=== PATIENT | male | born 1960 | race Caucasian/White ===

== ENCOUNTER → 2016-11-08 | Outpatient (CLI) | payer OTHER | END | disposition home or self-care (01) | LOC: C.LAB 14:08 | PROVIDERS: ATTEND Orthopaedic Surgery | DX: M25.532 Pain in left wrist (principal) ==

== ENCOUNTER 2019-05-27 10:37 | Inpatient (IN) ==
[2019-05-27] MEDS ORDERED: IMIPENEM/CILASTATIN SODIUM 500 MG in DEXTROSE 5% 100 ML IV STA (11:24)
[2019-05-27] MEDS ORDERED: DAPTOmycin 500 MG in SYRINGE 0 ML IV STA (11:24)
[2019-05-27 11:28] LABS: Basophils # (auto) 0.01 K/uL (0-0.2); Basophils % (auto) 0.2 %; Eosinophils # (auto) 0.13 K/uL (0-0.5); Eosinophils % (auto) 2.9 %; Hematocrit (blood only) 33.4 % (42-52); Hemoglobin 11.2 g/dL (14.0-18.0); Immature Granulocytes # (auto) 0.01 K/uL (0.00-0.02); Immature Granulocytes % (auto) 0.2 %; Lymphocytes # (auto) 0.74 K/uL (1.2-3.4); Lymphocytes % (auto) 16.5 %; Mean Corpuscular Hemoglobin 30.9 pg (25-34); Mean Corpuscular Hgb Conc 33.5 g/dL (32-36); Mean Platelet Volume 9.1 fL (7.4-10.4); Monocytes # (auto) 0.66 K/uL (0.11-0.59); Monocytes % (auto) 14.7 %; Neutrophils # (auto) 2.94 K/uL (1.4-6.5); Neutrophils % (auto) 65.5 %; Platelet Count 146 K/uL (130-400); RDW Coefficient of Variation 14.6 % (11.5-14.5); RDW Standard Deviation 49.2 fL (36.4-46.3); Red Blood Count 3.63 M/uL (4.7-6.1); White Blood Count 4.49 K/uL (4.8-10.8)
[2019-05-27 11:34] LABS: Appearance Urine Clear (Clear); Bacteria Urine Automated 4+ (Negative); Bilirubin Urine Negative (Negative); Blood Urine 3+ (Negative); Color Urine Yellow; Epithelial Cell Urine Auto 0-5 /lpf (0-5); Glucose Urine UA Negative (Negative); Ketones Urine Negative (Negative); Leukocyte Esterase Urine 1+ (Negative); Nitrite Urine Positive (Negative); Protein Urine Negative (Negative); Specific Gravity Urine 1.014 (1.000-1.030); Urobilinogen Urine Negative (Negative); WBC Urine Automated >30 /hpf (0-5)
[2019-05-27 11:48] LABS: Alanine Aminotransferase 74 U/L (12-78); Albumin Level 3.1 gm/dl (3.4-5.0); Aspartate Aminotransferase 65 U/L (15-37); BUN Creatinine Ratio 23.9 (10-20); Blood Urea Nitrogen 25 mg/dl (7-18); Calcium 9.1 mg/dl (8.5-10.1); Carbon Dioxide 28 mmol/L (21-32); Chloride 106 mmol/L (98-107); Est GFR (African American) 90.7; Est GFR (Non-African American) 78.2; Glucose 118 mg/dl (70-99); Lipase 187 U/L (73-393); Potassium 3.8 mmol/L (3.5-5.1); Sodium 136 mmol/L (136-145)
[2019-05-27 11:51] LABS: Albumin Globulin Ratio 0.7 (0.9-2); Alkaline Phosphatase 83 U/L (45-117); Bilirubin,Total 0.4 mg/dl (0.2-1); Globulin 4.2 gm/dl (2.5-4.0); Total Protein 7.3 gm/dl (6.4-8.2)
--- NOTE | 2019-05-27 13:21 | CT Scan Report ---
ABDOMEN AND PELVIS CT WITHOUT CONTRAST CT DOSE: 1781.94 mGy.cm HISTORY: Generalized abd pain, fever, urinary stent TECHNIQUE: Multiaxial CT images of the abdomen and pelvis were performed without contrast. A dose lo wering technique was utilized adhering to the principles of ALARA. COMPARISON STUDY: [facility] 04/01/2019. FINDINGS: A 4 mm nodule within the base of the right lower lobe on image 84. Punctate calcified granu woo within the lung bases. Trace bilateral pleural effusions. No pneumoperitoneum. No pneumatosis. Posterior decompression fusion from L2 through S1 with screws and rods. The hardware appears intact. There is abnormal periprosthetic lucency at the L2 and S1 pedicle screws. No fractures within the vis ualized osseous structures. A few punctate gallstones. No gallbladder wall thickening. The unenhanced liver, spleen, and adrenal glands are within normal limits. Small hiatus hernia. Prior gastric bypas s. The unenhanced pancreas is unremarkable. No retroperitoneal lymphadenopathy. Redemonstration of a horseshoe kidney. There is a punctate stone on the left. Multiple stones within the right lower pole widely. Mild perinephric edema. There is a right ureteral stent which appears in good position. No ur eteral or bladder stones. No bladder wall thickening. A 2.6 cm exophytic hypodense lesion within the right kidney. This likely represents a cyst. Suboptimal evaluation for bowel pathology due to the lac k of intravenous and oral contrast. However, there is no definite bowel wall thickening or obstructio n. Colonic diverticulosis. No evidence for diverticulitis. Normal appendix. IMPRESSION: 1. Bilateral nephrolithiasis. No ureteral stones. No hydronephrosis. 2. A right ureteral stent is in good position. 3. Horseshoe kidney. Mild perinephric edema is indeterminate but could be chronic. A pyelonephritis c ould also have a similar appearance in the appropriate clinical setting. Recommend correlation with u rinalysis. 5. No definite bowel wall thickening or obstruction. 6. Cholelithiasis. 7. A 4 mm indeterminate pulmonary nodule within the base of the right lower lobe. Please refer to the chart below for recommended follow-up. 8. Additional findings as described above. Please refer to below summary of Fleischner criteria recommendations for follow-up of incidental CT n odesequiel Cabrera, Guidelines for management of small pulmonary nodules detected on CT scans: A erendira acevedo from the Fleischner Society, Radiology [phone]: [phone].) SOLID NODULES Solitary nodule size: <6 mm * Low risk patients: no follow-up needed * high risk patients: optional CT at 12 months Solitary nodule size: 6-8 mm * Low risk patients: follow-up at 6-12 months, then consider further follow-up at 18-24 months * high risk patients: initial follow-up CT at 6-12 months and then at 18-24 months if no change Solitary nodule size: >8 mm * either low or high risk patients - consider follow-up CT at 3 months, and/or CT-PET, and/or biopsy Multiple nodules size: <6 mm * Low risk patients: no routine follow-up * high risk patients: optional CT at 12 months Multiple nodules size: 6-8 mm * Low risk patients: follow-up at 3-6 months, then consider further follow-up at 18-24 months * high risk patients: follow-up at 3-6 months, then at 18-24 months if no change Multiple nodules size: >8 mm * Low risk patients: follow-up at 3-6 months, then consider further follow-up at 18-24 months * high risk patients: follow-up at 3-6 months, then at 18-24 months if no change Note: newly detected indeterminate nodule in persons 35 years of age or older. * Low risk patients: minimal or absent history of smoking and/or other known risk factors * high risk patients: history of smoking or of other known risk factors (e.g. first degree relative with lung cancer, or exposure to asbestos, radon, uranium) * if a nodule up to 8 mm is partly solid or is ground glass further follow-up is required after 24 m onths to exclude possible slow growing adenocarcinoma (NATALIA) SUBSOLID NODULES Solitary pure ground-glass nodule * nodule size <6 mm - no CT follow-up required * nodule size >=6 mm - follow-up CT at 6-12 months, then every 2 years until 5 years Solitary part-solid nodule * nodule size <6 mm - no CT follow-up required * nodule size >=6 mm - follow-up CT at 3-6 months. If unchanged, and solid component remains <6 mm, then annual follow-up for 5 years Multiple subsolid nodules * nodule size <6 mm - follow-up CT at 3-6 months, consider further follow-up at 2 and 4 years if sta ble * nodule size >=6 mm - follow-up CT at 3-6 months, subsequent management based on the most suspiciou s nodule(s) Electronically signed by: Bandar Mccray M.D. 05/27/2019 1:20 PM
--- NOTE | 2019-05-27 14:25 | History & Physical Report ---
Date of Service May 27, 2019 Assessment & Plan (1) Pyelonephritis: (2) UTI (urinary tract infection): (3) Horseshoe kidney: -Admit to [facility] -Continue on IV antibiotics-received imipenem and daptomycin in the ER, will switch to imipenem and vancomycin IV. -S/P lithotripsy and stent placement by Dr. Harsh Chou on 05/14/2019, Urology consult. Pt was taking Omnicef p.o. s/p procedure and is now on hold as failed outp abx therapy with fever, chills and sweats throughout the weekend. -Consult Dr. Man with ID as follows him as outpt. -CT abd/pelvis reviewed: 1. Bilateral nephrolithiasis. No ureteral stones. No hydronephrosis. 2. A right ureteral stent is in good position. 3. Horseshoe kidney. Mild perinephric edema is indeterminate but could be chronic. A pyelonephritis could also have a similar appearance in the appropriate clinical setting. Recommend correlation with urinalysis. -UA today with nitrate and esterase, WBC >30, 4+ bacteria -Follow urine culture, previously cultures with coag negative staph and multidrug-resistant E. coli. -Strain all urine, bladder scan prn -No fluids with diuretics for HTN, consider holding lasix below. -Continue on terra Zosyn, Mirapex, holding Pyridium -BP stable at 121/77, afebrile upon admission, but had been taking Tylenol at home, does not appear septic at this time. (4) Hypertension: -Continue Lasix alternating doses of 40 mg QPM and 80 mg QAM (5) Hyperlipidemia: - Cont statin therapy (6) Atrial fibrillation: - Cont Eliquis, currently NSR with few PVCs, rate controlled - Continue carvedilol 6.25 mg BID (7) Diabetes mellitus, type 2: - ISS with accuchecks ACHS - HH/DM diet (8) Rheumatoid arthritis: - stable, continue voltaren gel prn (9) Sleep apnea: - Cont CPAP (10) Asthma: - Cont inhalers including albuterol, Advair. No respiratory complaints at this time. (11) Osteoarthritis: - Noted, stable (12) GERD (gastroesophageal reflux disease): - Cont PT/OT (13) Chronic back pain: - Stable, continue tylenol, voltaren gel (14) Morbid obesity: - diet and exercise to be encouraged upon discharge. (15) Anxiety: - Continue paxil 20 mg BID (16) DVT prophylaxis: sarah amezcua CODE: FULL Dispo: From home, likely to remain in the hospital for 1-2 days pending urology consultation History of Present Illness Primary Care Provider: Javier Shah This is a 58 yo M with PMHx of AFib, HTN, HLD, hx of ME, lumbar vertebral fracture, lung nodules attributed to calcified asbestos, asthma, DM II, GERD, RA, JONATHON on CPAP, chronic back and neck pain anxiety, horseshoe kidney and nephrolithiasis with hx of complicated UTI in the setting of nephrolithiasis ith E. Coli. Had been placed on omnicef as an outpatient since the basket stone removal on 05/14/19. The patient notes that he developed fever, chills, sweats starting on Monday. He notes having spiked a fever of 104 over the weekend and took Tylenol however had rebound spiking fevers. His appetite was fairly poor, but was able to take in fluids. He notes his urine is dark and cloudy, with occasional hematuria. He reports having lightheadedness and dizziness but thinks this is due to his poor oral intake. He denies any issues regarding his heart or shortness of breath. His who is at bedside reports that he has not been confused despite his fevers over the weekend. His symptoms progressed and called his urologist this morning who instructed him to go to the ER. Allergies Allergy/AdvReac Type Severity Reaction Status Date / Time bee venom protein (honey bee) Allergy Severe Anaphylaxis Verified 05/27/19 11:46 amitriptyline Allergy Intermediate Tachycardia Verified 05/27/19 11:46 budesonide [From Symbicort] Allergy Intermediate Tachycardia Verified 05/27/19 11:46 formoterol [From Symbicort] Allergy Intermediate Tachycardia Verified 05/27/19 11:46 gabapentin [From Neurontin] Allergy Intermediate tachycardia Verified 05/27/19 11:46 c pregabalin [From Lyrica] Allergy Intermediate Tachycardia Verified 05/27/19 11:46 fentanyl Allergy Unknown patch only Verified 05/27/19 11:46 - tachycardia sumac Allergy Severe Anaphylaxis Uncoded 05/27/19 11:46 Home Medications Home Medications Medication Instructions Recorded Confirmed Type Multivitamin 50 Plus 1 tab PO QDL 10/30/19 12/02/19 History albuterol sulfate 1.25 mg INHALATION BID PRN 04/24/19 05/27/19 History albuterol sulfate 2 inh INHALATION BID PRN 04/24/19 05/27/19 History carvedilol 6.25 mg PO BID 04/24/19 05/27/19 History cyanocobalamin (vitamin B-12) 1,000 mcg PO QDD 04/24/19 05/27/19 History [Vitamin B-12] diclofenac sodium [Voltaren] 2 g TOPICAL QID PRN 04/24/19 05/27/19 History epinephrine [EpiPen] 0.3 mg IM Q3H PRN 04/24/19 05/27/19 History ferrous sulfate 325 mg PO QDL 04/24/19 05/27/19 History finasteride 5 mg PO HS 04/24/19 05/27/19 History fluticasone propion-salmeterol 1 inh INHALATION BID PRN 04/24/19 05/27/19 History [Advair Diskus] furosemide [Lasix] 80 mg PO QAM 04/24/19 05/27/19 History insulin lispro [Humalog KwikPen 10 unit SUBCUT UD PRN 04/24/19 05/27/19 History Insulin] omeprazole 20 mg PO QAM 04/24/19 05/27/19 History paroxetine HCl [Paxil] 20 mg PO BID 04/24/19 05/27/19 History potassium chloride [Klor-Con M20] 20 meq PO BID 04/24/19 05/27/19 History pramipexole [Mirapex] 1.5 mg PO TID 04/24/19 05/27/19 History terazosin 5 mg PO HS 04/24/19 05/27/19 History tizanidine 4 mg PO HS PRN 04/24/19 05/27/19 History trazodone 200 mg PO HS 04/24/19 05/27/19 History cefdinir 300 mg capsule 300 mg PO Q12H #60 cap 05/03/19 05/27/19 Rx Eliquis 5 mg PO BID #0 tab 05/14/19 05/27/19 Rx aspirin [Aspirin Low Dose] 81 mg PO QAM #0 tab 05/14/19 05/27/19 Rx phenazopyridine [Pyridium] 200 mg PO Q8H PRN #20 tab 05/14/19 05/27/19 Rx acetaminophen [Tylenol Extra 500 mg PO Q6H PRN 05/27/19 05/27/19 History Strength] allopurinol 300 mg PO QDL 05/27/19 05/27/19 History atorvastatin 20 mg PO HS 05/27/19 05/27/19 History furosemide 40 mg PO QDD 05/27/19 05/27/19 History metolazone 5 mg PO MOWEFR 05/27/19 05/27/19 History Past Med/Surg History Medical History Anxiety Asthma Atrial fibrillation hx Barretts esophagus Benign essential tremor Cervical vertebral fracture limited range of motion Chronic back pain Degenerative disc disease Diabetes mellitus, type 2 diet controlled -- has humalog only prn (has not used since 2016) Diverticular disease Gall bladder stones GERD (gastroesophageal reflux disease) hx H/O retained foreign body fully removed bilateral eyes (removal of metal) H/O tongue cancer "pre cancerous lesions" Horseshoe kidney Hx of pneumothorax ~1981 r/t trauma Hyperlipidemia Hypertension Kidney stones Lumbar vertebral fracture Lung nodules believed to be calcified asbestos Myocardial Infarction possibly found on old EKG and also during ~2004 knee arthroscopy ([facility]) Neck pain On anticoagulant therapy Osteoarthritis Peptic ulcer disease hx Peripheral neuropathy bilateral legs Pneumonia hx Pyelonephritis Rheumatoid arthritis Sleep apnea CPAP UTI (urinary tract infection) CURRENTLY ON ABX (PO) WILL BE SEEING DR MAN FOR IV ABX Surgical History Fusion of spine Lumbar History of adenoidectomy History of arthroscopy of both knees History of bronchoscopy History of cardiac cath x2 total --> Aug 10, 2017 (most recent) [facility]. No stents. History of cardiac radiofrequency ablation x3 History of colonoscopy History of endoscopic sinus surgery History of esophagogastroduodenoscopy (EGD) History of gastric bypass History of laminectomy Lumbar History of tonsillectomy History of total knee replacement bilateral Hx of biopsy tongue x3 Family History Father Family history of diabetes mellitus FHx: leukemia Mother Family history of diabetes mellitus Social History Preferred Language: Japanese Communication Ability: Effective Calibrator Barometers Required: No Beliefs That Will Affect Care: None Current Living Situation: Spouse Feels Safe at Home: Yes Smoking Status: Never smoker Tobacco Type: smokeless tobacco ; Second Hand Exposure: No ; Hx Alcohol Use: No Hx Substance Use: No Review of Systems Review of Systems: Constitutional: + Fever, sweats and chills Eyes: No diplopia, no worsening or blurred vision ENT: normal hearing, no trouble swallowing Respiratory: No cough, sputum, dyspnea at rest or on exertion Cardiovascular: No chest pain, tightness or palpitations Abdomen: No pain, nausea, vomiting, diarrhea or constipation : + Darkened urine, cloudy urine, light pink and occasional hematuria Musculoskeletal: No joint pain, calf pain, swelling Neurologic: No weakness, numbness/tingling, or balance problems Psychiatric: No anxiety or depression Skin: No rash or itch Physical Exam Physical Exam: General: awake, alert, no apparent distress, + morbidly obese Head: Normocephalic, atraumatic ENT: PERRL, EOMI, no pharyngeal exudate, mucous membranes moist Chest: Clear to auscultation, on room air, no adventitious breath sounds Cardiac: Regular rate and rhythm, no murmur, no JVD, normal peripheral pulses, good capillary refill Abdominal: NABS x 4 quadrants, soft, nontender to palpation, no rebound, guarding or tenderness Extremities: Normal inspection, no peripheral edema or erythema, calfs nontender to palpation Psych: Normal mood and affect Neuro: AAO x 3, strength intact bilaterally and related 5/5, no motor deficits, speech is clear, no peripheral sensory deficits Skin: no rash or erythema Results & Data Vital Signs (Past 12 Hours) Vital Signs Temp Pulse Pulse Resp BP BP Pulse Ox 05/27/19 12:11 60 18 114/65 97 05/27/19 10:44 37.0 C 68 20 121/80 96 Diagnostic Findings ABDOMEN AND PELVIS CT WITHOUT CONTRAST CT DOSE: 1781.94 mGy.cm HISTORY: Generalized abd pain, fever, urinary stent TECHNIQUE: Multiaxial CT images of the abdomen and pelvis were performed without contrast. A dose lowering technique was utilized adhering to the principles of ALARA. COMPARISON STUDY: [facility] 04/01/2019. FINDINGS: A 4 mm nodule within the base of the right lower lobe on image 84. Punctate calcified granulomas within the lung bases. Trace bilateral pleural effusions. No pneumoperitoneum. No pneumatosis. Posterior decompression fusion from L2 through S1 with screws and rods. The hardware appears intact. There is abnormal periprosthetic lucency at the L2 and S1 pedicle screws. No fractures within the visualized osseous structures. A few punctate gallstones. No gallbladder wall thickening. The unenhanced liver, spleen, and adrenal glands are within normal limits. Small hiatus hernia. Prior gastric bypass. The unenhanced pancreas is unremarkable. No retroperitoneal lymphadenopathy. Redemonstration of a horseshoe kidney. There is a punctate stone on the left. Multiple stones within the right lower pole widely. Mild perinephric edema. There is a right ureteral stent which appears in good position. No ureteral or bladder stones. No bladder wall thickening. A 2.6 cm exophytic hypodense lesion within the right kidney. This likely represents a cyst. Suboptimal evaluation for bowel pathology due to the lack of intravenous and oral contrast. However, there is no definite bowel wall thickening or obstruction. Colonic diverticulosis. No evidence for diverticulitis. Normal appendix. IMPRESSION: 1. Bilateral nephrolithiasis. No ureteral stones. No hydronephrosis. 2. A right ureteral stent is in good position. 3. Horseshoe kidney. Mild perinephric edema is indeterminate but could be chronic. A pyelonephritis could also have a similar appearance in the appropriate clinical setting. Recommend correlation with urinalysis. 5. No definite bowel wall thickening or obstruction. 6. Cholelithiasis. 7. A 4 mm indeterminate pulmonary nodule within the base of the right lower lob e. Please refer to the chart below for recommended follow-up. 8. Additional findings as described above. Code Status & VTE Plan Code Status Full code -discussed with patient and his at bedside. Patient notes that in the event that he would require life support or other forms of heroic measures he would not want this. Supervising Physician Co-Signing Physician Notes Patient seen and examined, chart reviewed, case discussed with JORDY Alford and I agree with her assessment and plan as documented above. Briefly, patient is a pleasant 58-year-old male with history of hypertension, hyperlipidemia, diabetes, RA, obesity, horseshoe kidney, recent urologic instrumentation with lithotripsy and stent placement on 05/[address] Chou. Patient with urine culture + drug-resistant E. coli from 04/26 and intraoperative culture from 05/14 with coagulase-negative staph. Patient has been on Omnicef since 05/14 under the direction of Dr. Man. He presents today with fever/chills/sweats since Monday. On exam he is afebrile, hemodynamically stable, nontoxic in appearance. + Right CVA tenderness. Labs with mild leukopenia WBC = 4.49. UA + blood, nitrites, WBCs, bacteria. Examafebrile, hemodynamically stable, no acute distress + Right CVA tenderness Exam otherwise unremarkable Labs and images reviewed. CT abdomen performed which showed bilateral nephrolithiasis, no ureteral stones, no hydronephrosis, right ureteral stent is in good position. Assessment/[id number] male with multiple medical comorbidities presenting with fevers/chills/sweats/right flank pain, UA suggestive of infection. -Admit to medical floor for antibiotics and supportive care -We will cover with Vanco and imipenem for now -ID consultation appreciated -Nocturnal CPAP -Remainder of plan as above PG Care Time/CCT Total # of Minutes Spent Total Time Spent with Patient: Total time spent is greater than 50% in coordination of care (as documented) at patient's floor/unit and/or counseling patient:
--- NOTE | 2019-05-27 15:20 | Emergency Department Note ---
Entered by Rodrigo Gentile acting as a scribe for ED Provider Note CHIEF COMPLAINT: Pelvic pain HISTORY OF PRESENT ILLNESS: The patient is a 58 year old male who presents to the Emergency Room with complaints of constant bilateral lower abdominal pain that started about 3 days ago. The patient rates the pain as a 3/10 and notes nothing seems to help relieve it. The patient endorses some associated nausea but has not vomited. The patient also has been running intermittent fevers since the onset of his pain with his highest fever reaching 104F. The patient adds that he is experiencing pain with urination and his urine has been a very dark brown color. The patient has a horse shoe kidney and a history of UTIs, kidney stones and gallstones. The patient is currently on Omnicef for a UTI. He also mentioned that he had a 15mm kidney stone lasered 2 weeks ago and had a stent placed by Dr. Chou. The stent is scheduled to be removed on 06/07. Additionally the patient endorses right upper quadrant abdominal pain. Pt denies LOC, headache, diaphoresis, visual changes, neck pain, chest pain, breathing difficulties,vomiting, back pain, melena, hematochezia, numbness, weakness, lymphadenopathy, rash, or other complaints. REVIEW OF SYSTEMS: See HPI for pertinent positives and negatives. A total of ten systems were re viewed and were otherwise negative. PMHx/PSHx: Kidney stone, Gallstones, UTIs, Horse shoe kidney, Afib, DM type 2, GERD SOCIAL HISTORY: Patient lives at home. PHYSICAL EXAM: GENERAL: Awake, alert, uncomfortable-appearing, in no distress HENT: Normocephalic, atraumatic. Oropharynx unremarkable. EYES: Normal conjunctiva. Sclera non-icteric. NECK: Inspection normal. Non-tender. Supple. No nuchal rigidity. FROM. No masses. RESPIRATORY: Clear to auscultation. No wheezes. No rales. Normal respiratory effort. CARDIAC: Normal rate. Normal rhythm. No murmurs. No rubs. Extremities warm and well perfused. Pulses equal. No JVD. GI: Soft, non-distended. No tenderness to palpation. No rebound or guarding. No masses. RECTAL: Deferred. MUSCULOSKELETAL: Atraumatic. Chest examination reveals no tenderness. The back is symmetrical on inspection without obvious abnormality. There is right CVA and flank tenderness to palpation. No joint edema. LOWER EXTREMITIES: Calves are equal size bilaterally and non-tender. No edema. No discoloration. NEURO: Normal sensorium. No sensory or motor deficits noted. SKIN: No rash or jaundice noted. EMERGENCY DEPARTMENT COURSE: 1052: Past medical records reviewed. The patient was evaluated in room C09 by the resident Dr. Serrano, and a complete history and physical examination were performed. I then performed my own assessment of the patient. He is declining any medication for pain at this time. 1330: I spoke to Dr. Chou - Urology who states there is no surgical intervention is needed at this time. He recommended having the patient hospitalized for IV antibiotics. 1355: I updated the patient on results and the treatment plan which he is agreeable to. I discussed the patient's case with Dr. Rios - [facility] Hospitalist who agreed to accept the patient for further evaluation. MEDICAL DECISION MAKING: Prior records/ancillary studies reviewed. The patient had a significant E. coli UTI diagnosed by culture. Recent culture revealed a non-MRSA methicillin- resistant Staphylococcus. Triage Nursing notes reviewed and agree them. Additional history obtained from the family. The patient's history was concerning for flank and abdominal pain. Differential diagnosis: Etiologies such as pyelonephritis, renal abscess, renal colic, appendicitis, diverticulitis, mesenteric ischemia, aortic pathology, infections, inflammatory bowel disease, PUD, biliary pathology, as well as others were entertained. Physical examination findings: As above. Right flank tenderness. ER treatment provided: Patient declined analgesia IV imipenem and daptomycin based upon prior cultures. On reassessment the patient felt better. Diagnostic interpretation by me: The labs revealed a mild leukopenia and anemia on CBC. Chemistry panel revealed no significant findings. Urinalysis very concerning for infection. Blood and urine cultures pending. Imaging studies: CT imaging of the abdomen pelvis revealed findings concerning for horseshoe kidney with pyelonephritis. There were no abscesses noted. Stent in place. Consultation: A consultation was made with the patient's urologist, Dr. Chou. We discussed the findings. Given the patient's significant symptoms over the weekend with very high fevers and his duration of oral antibiotics we elected to treat the patient with IV antibiotics in the hospital. No surgical intervention was recommended. A consultation was placed with the hospitalist. The case was discussed and diagnostics were reviewed. The patient was evaluated in the ER for further treatment. IMPRESSION: Pyelonephritis Right flank pain PLAN: Being evaluated by the hospitalist The scribe's documentation has been prepared under my direction and personally reviewed by me in its entirety. I confirm that the note above accurately reflects all work, treatment, procedures, and medical decision making performed by me. Impression & Plan Pyelonephritis, Flank pain Past Med/Surg History Medical History Anxiety Asthma Atrial fibrillation hx Barretts esophagus Benign essential tremor Cervical vertebral fracture limited range of motion Chronic back pain Degenerative disc disease Diabetes mellitus, type 2 diet controlled -- has humalog only prn (has not used since 2017) Diverticular disease Gall bladder stones GERD (gastroesophageal reflux disease) hx H/O retained foreign body fully removed bilateral eyes (removal of metal) H/O tongue cancer "pre cancerous lesions" Horseshoe kidney Hx of pneumothorax ~1981 r/t trauma Hyperlipidemia Hypertension Kidney stones Lumbar vertebral fracture Lung nodules believed to be calcified asbestos Myocardial Infarction possibly found on old EKG and also during ~2004 knee arthroscopy ([facility]) Neck pain On anticoagulant therapy Osteoarthritis Peptic ulcer disease hx Peripheral neuropathy bilateral legs Pneumonia hx Pyelonephritis Rheumatoid arthritis Sleep apnea CPAP UTI (urinary tract infection) CURRENTLY ON ABX (PO) WILL BE SEEING DR SHEEHAN FOR IV ABX Surgical History Fusion of spine Lumbar History of adenoidectomy History of arthroscopy of both knees History of bronchoscopy History of cardiac cath x2 total --> Aug 10, 2017 (most recent) [facility]. No stents. 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 Beliefs That Will Affect Care: None Current Living Situation: Spouse Feels Safe at Home: Yes Smoking Status: Never smoker Tobacco Type: smokeless tobacco ; Second Hand Exposure: No ; Hx Alcohol Use: No Hx Substance Use: No Results & Data Vital Signs Vital Signs - 24 hr 05/27/19 10:44 05/27/19 12:11 05/27/19 14:26 Temperature 37.0 C Temperature Source Oral Pulse Rate 68 Pulse Rate [Apical] 60 66 Pulse Rhythm Regular Pulse Strength Normal Respiratory Rate 20 18 18 Respiratory Effort / Characteristics Non-Labored Spontaneous Respiratory Depth Normal Respiratory Pattern Regular Blood Pressure 121/80 Blood Pressure [Left Arm] 114/65 121/77 Blood Pressure Mean 93 Blood Pressure Mean [Left Arm] 81 91 Blood Pressure Position Sitting Pulse Oximetry 96 97 97 Oxygen Delivery Method Room Air Room Air Room Air Sepsis Recent Fever Within 48 Hours Yes Sepsis New/Unexplained Change in Mental Status No Sepsis Action Taken by Nursing No Action Required 05/27/19 15:10 Temperature Temperature Source Pulse Rate Pulse Rate [Apical] 61 Pulse Rhythm Pulse Strength Respiratory Rate 18 Respiratory Effort / Characteristics Respiratory Depth Respiratory Pattern Blood Pressure Blood Pressure [Left Arm] 128/64 Blood Pressure Mean Blood Pressure Mean [Left Arm] 85 Blood Pressure Position Pulse Oximetry 97 Oxygen Delivery Method Room Air Sepsis Recent Fever Within 48 Hours Sepsis New/Unexplained Change in Mental Status Sepsis Action Taken by Fpc Medications Current Medication List: was personally reviewed by me Laboratory Data Attestation: I reviewed the patient's lab results. Result diagrams: 05/27/19 11:18 05/27/19 11:18 Lab Results 05/27/19 05/27/19 05/27/19 Range/Units 11:18 11:18 11:19 WBC 4.49 L (4.8-10.8) K/uL RBC 3.63 L (4.7-6.1) M/uL Hgb 11.2 L (14.0-18.0) g/dL Hct 33.4 L (42-52) % MCV 92.0 (80-100) fL MCH 30.9 (25-34) pg MCHC 33.5 (32-36) g/dL RDW Std Deviation 49.2 H (36.4-46.3) fL RDW Coeff of Fitz 14.6 H (11.5-14.5) % Plt Count 146 (130-400) K/uL MPV 9.1 (7.4-10.4) fL Immature Gran % (Auto) 0.2 % Neut % (Auto) 65.5 % Lymph % (Auto) 16.5 % [place] % (Auto) 14.7 % Eos % (Auto) 2.9 % Baso % (Auto) 0.2 % Immature Gran # (Auto) 0.01 (0.00-0.02) K/uL Neut # (Auto) 2.94 (1.4-6.5) K/uL Lymph # (Auto) 0.74 L (1.2-3.4) K/uL [place] # (Auto) 0.66 H (0.11-0.59) K/uL Eos # (Auto) 0.13 (0-0.5) K/uL Baso # (Auto) 0.01 (0-0.2) K/uL Sodium 136 (136-145) mmol/L Potassium 3.8 (3.5-5.1) mmol/L Chloride 106 (98-107) mmol/L Carbon Dioxide 28 (21-32) mmol/L Anion Gap 2.0 L (3-11) BUN 25 H (7-18) mg/dl Creatinine 1.04 (0.6-1.4) mg/dl Est Cr Clr Drug Dosing Not Reportable Est GFR ( Amer) 90.7 Est GFR (Non-Af Amer) 78.2 BUN/Creatinine Ratio 23.9 H (10-20) Glucose 118 H (70-99) mg/dl Calcium 9.1 (8.5-10.1) mg/dl Total Bilirubin 0.4 (0.2-1) mg/dl AST 65 H (15-37) U/L ALT 74 (12-78) U/L Alkaline Phosphatase 83 (45-117) U/L Total Protein 7.3 (6.4-8.2) gm/dl Albumin 3.1 L (3.4-5.0) gm/dl Globulin 4.2 H (2.5-4.0) gm/dl Albumin/Globulin Ratio 0.7 L (0.9-2) Lipase 187 (73-393) U/L Urine Color Yellow Urine Appearance Clear (Clear) Urine pH 5.0 (4.5-7.5) Ur Specific Ashley 1.014 (1.000-1.030) Urine Protein Negative (Negative) Urine Glucose (UA) Negative (Negative) Urine Ketones Negative (Negative) Urine Blood 3+ H (Negative) Urine Nitrite Positive A (Negative) Urine Bilirubin Negative (Negative) Urine Urobilinogen Negative (Negative) Ur Leukocyte Esterase 1+ H (Negative) Urine WBC (Auto) >30 H (0-5) /hpf Urine RBC (Auto) 5-10 H (0-4) /hpf U Hyaline Cast (Auto) 1-5 (0-5) /lpf U Epithel Cells (Auto) 0-5 (0-5) /lpf Urine Bacteria (Auto) 4+ H (Negative) Administered Medications Discontinued Medications Daptomycin 500 mg/ Syringe 10 mls @ 5 mls/min IV NOW STA; Protocol Stop: 05/27/19 11:25 Last Admin: 05/27/19 12:04 Dose: 5 mls/min Documented by: [id number] Imipenem/Cilastatin Sodium 500 (mg/ Dextrose) 110 mls @ 100 mls/hr IV NOW STA; Protocol Stop: 05/27/19 12:29 Last Infusion: 05/27/19 13:23 Dose: 0 mls/hr Documented by: [id number] Admin: 05/27/19 12:04 Dose: 100 mls/hr Documented by: [id number] Imaging Data Radiologist's Impression: Radiology results as stated below per my review and the radiologist's interpretation: ABDOMEN AND PELVIS CT WITHOUT CONTRAST CT DOSE: 1781.94 mGy.cm HISTORY: Generalized abd pain, fever, urinary stent TECHNIQUE: Multiaxial CT images of the abdomen and pelvis were performed without contrast. A dose lowering technique was utilized adhering to the principles of ALARA. COMPARISON STUDY: IVP 04/01/2019. FINDINGS: A 4 mm nodule within the base of the right lower lobe on image 84. Punctate calcified granulomas within the lung bases. Trace bilateral pleural effusions. No pneumoperitoneum. No pneumatosis. Posterior decompression fusion from L2 through S1 with screws and rods. The hardware appears intact. There is abnormal periprosthetic lucency at the L2 and S1 pedicle screws. No fractures within the visualized osseous structures. A few punctate gallstones. No gallbladder wall thickening. The unenhanced liver, spleen, and adrenal glands are within normal limits. Small hiatus hernia. Prior gastric bypass. The unenhanced pancreas is unremarkable. No retroperitoneal lymphadenopathy. Redemonstration of a horseshoe kidney. There is a punctate stone on the left. Multiple stones within the right lower pole widely. Mild perinephric edema. There is a right ureteral stent which appears in good position. No ureteral or bladder stones. No bladder wall thickening. A 2.6 cm exophytic hypodense lesion within the right kidney. This likely represents a cyst. Suboptimal evaluation for bowel pathology due to the lack of intravenous and oral contrast. However, there is no definite bowel wall thickening or obstruction. Colonic divertic ulosis. No evidence for diverticulitis. Normal appendix. IMPRESSION: 1. Bilateral nephrolithiasis. No ureteral stones. No hydronephrosis. 2. A right ureteral stent is in good position. 3. Horseshoe kidney. Mild perinephric edema is indeterminate but could be chronic. A pyelonephritis could also have a similar appearance in the appropriate clinical setting. Recommend correlation with urinalysis. 5. No definite bowel wall thickening or obstruction. 6. Cholelithiasis. 7. A 4 mm indeterminate pulmonary nodule within the base of the right lower lobe. Please refer to the chart below for recommended follow-up. 8. Additional findings as described above. Please refer to below summary of Fleischner criteria recommendations for follow- up of incidental CT nodules (Britany Cabrera, Guidelines for management of small pulmonary nodules detected on CT scans: A statement from the Fleischner Society, Radiology 237: [phone].) SOLID NODULES Solitary nodule size: <6 mm * Low risk patients: no follow-up needed * high risk patients: optional CT at 12 months Solitary nodule size: 6-8 mm * Low risk patients: follow-up at 6-12 months, then consider further follow-up at 18-24 months * high risk patients: initial follow-up CT at 6-12 months and then at 18-24 months if no change Solitary nodule size: >8 mm * either low or high risk patients - consider follow-up CT at 3 months, and/or CT-PET, and/or biopsy Multiple nodules size: <6 mm * Low risk patients: no routine follow-up * high risk patients: optional CT at 12 months Multiple nodules size: 6-8 mm * Low risk patients: follow-up at 3-6 months, then consider further follow-up at 18-24 months * high risk patients: follow-up at 3-6 months, then at 18-24 months if no change Multiple nodules size: >8 mm * Low risk patients: follow-up at 3-6 months, then consider further follow-up at 18-24 months * high risk patients: follow-up at 3-6 months, then at 18-24 months if no change Note: newly detected indeterminate nodule in persons 35 years of age or older. * Low risk patients: minimal or absent history of smoking and/or other known risk factors * high risk patients: history of smoking or of other known risk factors (e.g. first degree relative with lung cancer, or exposure to asbestos, radon, uranium) * if a nodule up to 8 mm is partly solid or is ground glass further follow-up is required after 24 months to exclude possible slow growing adenocarcinoma (NATALIA) SUBSOLID NODULES Solitary pure ground-glass nodule * nodule size <6 mm - no CT follow-up required * nodule size >=6 mm - follow-up CT at 6-12 months, then every 2 years until 5 years Solitary part-solid nodule * nodule size <6 mm - no CT follow-up required * nodule size >=6 mm - follow-up CT at 3-6 months. If unchanged, and solid co mponent remains <6 mm, then annual follow-up for 5 years Multiple subsolid nodules * nodule size <6 mm - follow-up CT at 3-6 months, consider further follow-up at 2 and 4 years if stable * nodule size >=6 mm - follow-up CT at 3-6 months, subsequent management based on the most suspicious nodule(s) Electronically signed by: Bandar Mccray M.D. 05/27/2019 1:20 PM Blood Pressure Blood Pressure Findings: Elevated blood pressure Blood Pressure Disposition: further management by hospitalist Discharge Plan Visit Data Chief Complaint: Kidney Stone Stated Complaint: KIDNEY STONE, HIGH TEMPERATURE ED Provider: Javier Lee Discharge Problem: Pyelonephritis, Flank pain Patient Disposition: Being Evaluated by Hospitalist Forms Stand Alone Forms: My [facility]BI Vaccines Prescriptions Prescriptions: No Action cefdinir 300 mg capsule 300 mg PO Q12H Qty: 60 RF: 1 furosemide 40 mg tablet 40 mg PO QDD RF: 0 metolazone 2.5 mg tablet 5 mg PO MOWEFR RF: 0 atorvastatin 20 mg Tablet 20 mg PO HS RF: 0 allopurinol 300 mg tablet 300 mg PO QDL RF: 0 acetaminophen [Tylenol Extra Strength] 500 mg Tablet 500 mg PO Q6H PRN (Reason: Pain) RF: 0 furosemide [Lasix] 40 mg Tablet 80 mg PO QAM RF: 0 terazosin 5 mg Capsule 5 mg PO HS RF: 0 carvedilol 6.25 mg Tablet 6.25 mg PO BID RF: 0 tizanidine 4 mg Tablet 4 mg PO HS PRN (Reason: MUSCLE SPASMS) RF: 0 albuterol sulfate 1.25 mg/3 mL Solution For Nebulization 1.25 mg INHALATION BID PRN (Reason: ASTHMA) RF: 0 cyanocobalamin (vitamin B-12) [Vitamin B-12] 1,000 mcg Tablet 1,000 mcg PO QDD RF: 0 potassium chloride [Klor-Con M20] 20 mEq Tablet,Er Particles/Crystals 20 meq PO BID RF: 0 trazodone 100 mg Tablet 200 mg PO HS RF: 0 paroxetine HCl [Paxil] 20 mg Tablet 20 mg PO BID RF: 0 ferrous sulfate 325 mg (65 mg iron) Tablet 325 mg PO QDL RF: 0 fluticasone propion-salmeterol [Advair Diskus] 500-50 mcg/dose Blister With D evice 1 inh INHALATION BID PRN (Reason: Shortness Of Breath Or Wheezing) RF: 0 epinephrine [EpiPen] 0.3 mg/0.3 mL Auto-Injector 0.3 mg IM Q3H PRN (Reason: Allergic Reaction) RF: 0 pramipexole [Mirapex] 1.5 mg Tablet 1.5 mg PO TID RF: 0 Multivitamin 50 Plus Tablet 1 tab PO QDL RF: 0 insulin lispro [Humalog KwikPen Insulin] 100 unit/mL Insulin Pen 10 unit SUBCUT UD PRN (Reason: Hyperglycemia) RF: 0 diclofenac sodium [Voltaren] 1 % Gel 2 g TOPICAL QID PRN (Reason: Pain) RF: 0 omeprazole 20 mg Tablet,Delayed Release (Dr/Ec) 20 mg PO QAM RF: 0 albuterol sulfate 90 mcg/actuation Aerosol Powdr Breath Activated 2 inh INHALATION BID PRN (Reason: ASTHMA) RF: 0 finasteride 5 mg tablet 5 mg PO HS RF: 0 phenazopyridine [Pyridium] 200 mg tablet 200 mg PO Q8H PRN (Reason: bladder spasms) Qty: 20 RF: 0 aspirin [Aspirin Low Dose] 81 mg Tablet,Delayed Release (Dr/Ec) 81 mg PO QAM Qty: 0 RF: 0 Eliquis 5 mg Tablet 5 mg PO BID Qty: 0 RF: 0 Referrals Referrals: Javier Shah D.O. [Primary Care Provider] - The scribe's documentation has been prepared under my direction and personally reviewed by me in its entirety. I confirm that the note above accurately r eflects all work, treatment, procedures, and medical decision making performed by me.
[2019-05-27] MEDS ORDERED: IMIPENEM/CILASTATIN SODIUM 250 MG in DEXTROSE 5% 100 ML IV SCH (16:29)
[2019-05-27] MEDS ORDERED: ACETAMINOPHEN 325 MG TAB PO PRN (16:29)
[2019-05-27] MEDS ORDERED: ACETAMINOPHEN 500 MG TAB PO PRN (16:29)
[2019-05-27] MEDS ORDERED: FLUTICASONE/SALMETEROL (ADVAIR) 500/50 INH 14 PUFF INH PRN (16:29)
[2019-05-27] MEDS ORDERED: NON-FORMULARY MEDICATION (Insulin Lispro [Humalog Kwikpen Insulin] 10 UNITS) SQ PRN (16:29)
[2019-05-27] MEDS ORDERED: DICLOFENAC SOD 1% GEL 100 GM TUBE EXT PRN (16:29)
[2019-05-27] MEDS ORDERED: TIZANIDINE HCL 4 MG TABLET PO PRN (16:29)
[2019-05-27] MEDS ORDERED: ALBUTEROL HFA 8 GM INHALER INH PRN (16:29)
[2019-05-27] MEDS ORDERED: VANCOMYCIN CONSULT ACTIVE PRN (16:29)
[2019-05-27] MEDS ORDERED: ONDANSETRON INJ 2 MG/ML 2 ML VIAL IV PRN (16:29)
[2019-05-27] MEDS ORDERED: NON-FORMULARY MEDICATION (Albuterol Sulfate 1.25 MG) INH PRN (16:29)
[2019-05-27] MEDS ORDERED: PATIENT'S HEIGHT AND/OR WEIGHT NEEDED SCH (17:00)
[2019-05-27] MEDS ORDERED: DEXTROSE 50% 50 ML SYRINGE IV PRN (17:06)
[2019-05-27] MEDS ORDERED: GLUCOSE 40% GEL 15 GM TUBE PO PRN (17:06)
[2019-05-27] MEDS ORDERED: GLUCOSE 10 TABS/TUBE PO PRN (17:06)
[2019-05-27] MEDS ORDERED: CARBOHYDRATES FOR HYPOGLYCEMIA PO PRN (17:06)
[2019-05-27] MEDS ORDERED: GLUCAGON FOR INJ 1 MG VIAL SQ PRN (17:06)
[2019-05-27] MEDS: SODIUM CHLORIDE 0.9% 1000ML 1,000 ML IV SCH (17:18)
[2019-05-27] MEDS ORDERED: FUROSEMIDE 40 MG TAB PO SCH (18:00)
--- NOTE | 2019-05-27 18:12 | Pharmacy Report ---
Pharmacy Abx Initial Consult - Date of Service May 27, 2019 - Pharmacy Dosing Scope Date of Consult: 05/27/19 Consultation requested by: Tia Alford PA-C Pharmacy is consulted to initiate Vancomycin IV dosing therapy, order appropriate labs and adjust drug dose/frequency. - Subjective The patient is a 58 year old M admitted on 05/27/19 14:40. - Objective Height: 6 ft Weight: 151.4 kg Vital Signs (Past 12hrs): Vital Signs Temp Pulse Pulse Pulse Resp BP BP 05/27/19 16:25 37.7 C H 64 18 154/93 H 05/27/19 16:04 70 18 121/79 05/27/19 15:10 61 18 128/64 05/27/19 14:26 66 18 121/77 05/27/19 12:11 60 18 114/65 05/27/19 10:44 37.0 C 68 20 121/80 Pulse Ox 05/27/19 16:25 98 05/27/19 16:04 95 05/27/19 15:10 97 05/27/19 14:26 97 05/27/19 12:11 97 05/27/19 10:44 96 Lab Results (24hrs): Laboratory Tests (24 Hours) 05/27/19 05/27/19 11:18 11:18 WBC 4.49 L Neut # (Auto) 2.94 Creatinine 1.04 Est Cr Clr Drug Dosing Not Reportable Micro Results: 05/27/19 11:56 Aerobic Blood Culture - Pending Blood Anaerobic Blood Culture - Pending 05/27/19 11:55 Aerobic Blood Culture - Pending Blood Anaerobic Blood Culture - Pending 05/27/19 11:19 Urine Culture - Pending Urine,Clean Catch - Risk Factors for Resistance * History of infection with a multidrug-resistant organism: 3 urine cultures over the last 3 months that are growing MDR E. coli, please see previous culture results for full list. Of note, culture was sensitive to cefepime and imipenem. * Antimicrobial use within the last 90 days [Omnicef 300mg Q12 since 05/25 - Assessment & Plan Assessment 58 year old M with h/o a. 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 He has been on Omnicef 500mg Q12 since basket stone removal on 05/14/19. Has been following with Dr. Man. WBC 4.5, renal function appears to be at baseline (?) Blood and urine cultures pending - has had 3 urine cultures since Mar growing MDR e.coli, please see previous cultures for sensitivities. One culture also grew out coag neg staph, resistant to oxacillin. Plan Vancomycin and Cefepime for treatment of complicated UTI with history of MDR e.coli and coag neg staph. 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 * Maintenance dose: 2000 mg IV (13 mg/kg) every 12 hours * Goal trough level : 15 to 20 mcg/mL * Trough/Random level ordered for 05/29/19 before 3rd maintenance dose. Please note that this level will not be reflective of Css and is merely to assess for drug accumulation in the setting of BMI >35. * A less than traditional dose and/or extended dosing interval has/have been selected due to likelihood of drug accumulation in obese patient. Cefepime (not a consult) * 2gm IV Q8H appropriate for renal function and clinical indication. Pharmacy will continue to follow and will adjust dose/frequency as necessary. Thank you.
[2019-05-27] MEDS: allopurinoL 300 MG TAB PO SCH (19:33)
[2019-05-27] MEDS: CEFEPIME 2,000 MG in SYRINGE 7.5 ML IV SCH (19:33)
[2019-05-27] MEDS: CYANOCOBALAMIN 500 MCG TABLET (VITAMIN B-12) PO SCH (19:33)
[2019-05-27] MEDS: FINASTERIDE 5 MG TAB PO SCH (22:04)
[2019-05-27] MEDS: APIXABAN 5 MG TABLET PO SCH (22:04)
[2019-05-27] MEDS: TERAZOSIN HCL 5 MG CAP PO SCH (22:05)
[2019-05-27] MEDS: carvediloL 6.25 MG TAB PO SCH (22:05)
[2019-05-27] MEDS: TRAZODONE HCL 100 MG TAB PO SCH (22:05)
[2019-05-27] MEDS: ATORVASTATIN 20 MG TAB PO SCH (22:05)
[2019-05-27] MEDS: POTASSIUM CHLORIDE 20 MEQ TABCR PO SCH (22:06)
[2019-05-27] MEDS: PRAMIPEXOLE DIHYDROCHLO 0.5 MG TAB PO SCH (22:06)
[2019-05-27] MEDS: PARoxetine HCl 20 MG TAB PO SCH (22:07)
[2019-05-27] MEDS: INSULIN ASPART 100 UNITS/ML 3 ML PEN SC SCH (22:11)
[2019-05-28] MEDS: SODIUM CHLORIDE 0.9% 1000ML 1,000 ML IV SCH ×3 (01:38→22:30)
[2019-05-28] MEDS: CEFEPIME 2,000 MG in SYRINGE 7.5 ML IV SCH ×3 (01:39→17:39)
[2019-05-28 05:44] LABS: Hematocrit (blood only) 32.1 % (42-52); Hemoglobin 10.6 g/dL (14.0-18.0); Mean Corpuscular Hemoglobin 30.2 pg (25-34); Mean Corpuscular Volume 91.5 fL (80-100); Mean Platelet Volume 9.6 fL (7.4-10.4); Platelet Count 146 K/uL (130-400); RDW Coefficient of Variation 14.6 % (11.5-14.5); RDW Standard Deviation 49.2 fL (36.4-46.3); Red Blood Count 3.51 M/uL (4.7-6.1); White Blood Count 4.57 K/uL (4.8-10.8)
[2019-05-28 06:19] LABS: Albumin Level 2.9 gm/dl (3.4-5.0); BUN Creatinine Ratio 22.4 (10-20); Calcium 8.7 mg/dl (8.5-10.1); Est GFR (African American) 105.1; Est GFR (Non-African American) 90.7; Potassium 3.7 mmol/L (3.5-5.1)
[2019-05-28 06:33] LABS: Albumin Globulin Ratio 0.7 (0.9-2); Bilirubin,Total 0.4 mg/dl (0.2-1); Total Protein 6.9 gm/dl (6.4-8.2)
--- NOTE | 2019-05-28 08:06 | Urology Consultation ---
Date of Consultation May 28, 2019 Assessment & Plan (1) Horseshoe kidney: (2) UTI (urinary tract infection): (3) Pyelonephritis: 58yo M with significant hx of horseshoe kidney, recurrent UTIs, stones, admitted via [facility] ER for fever (104F at home), chills, sweats. S/p cysto, right LL, right ureteral stent placement by Dr. Chou on 05/14. Awaiting final UC&S and BCx. Abx management per ID, appreciate recommendations. Pt continues to void spontaneously - will add bladder scans qshift x24 hours. Straight cath for PVR >500cc or discomfort. Will discuss followup stent management with Dr. Chou today. No acute surgical intervention required at this time. Will continue to monitor while inpatient. History of Present Illness Reason for Consultation: pyelo, s/p stent Requesting Physician: Dr. Mandujano Attending Physician: Jenelle Mandujano MD History of Present Illness 58yo M with significant hx of horseshoe kidney, recurrent UTIs, stones, admitted via [facility] ER for fever (104F at home), chills, sweats. S/p cysto, right LL, right ureteral stent placement by Dr. Chou on 05/14. Pt was taking omnicef per ID prior to admission. Pt states he is feeling much better this AM. Sitting up in bed, eating regular breakfast. Very conversive. Voiding into urinal, states he was doing well until recently. Unsure if having some retention issues this AM. Denies dysuria, hematuria. Denies flank or suprapubic pain. Chart review - VSS; Tmax 37.[address] abd/pelvis - Horseshoe kidney; no obstruction or abscess formation appreciated. Right ureteral stent in good position. WBC nl, Cr 0.92 Allergies Allergy/AdvReac Type Severity Reaction Status Date / Time bee venom protein (honey bee) Allergy Severe Anaphylaxis Verified 05/27/19 11:46 amitriptyline Allergy Intermediate Tachycardia Verified 05/27/19 11:46 budesonide [From Symbicort] Allergy Intermediate Tachycardia Verified 05/27/19 11:46 formoterol [From Symbicort] Allergy Intermediate Tachycardia Verified 05/27/19 11:46 gabapentin [From Neurontin] Allergy Intermediate tachycardia Verified 05/27/19 11:46 c pregabalin [From Lyrica] Allergy Intermediate Tachycardia Verified 05/27/19 11:46 fentanyl Allergy Unknown patch only Verified 05/27/19 11:46 - tachycardia sumac Allergy Severe Anaphylaxis Uncoded 05/27/19 11:46 Home Medications Home Medications Medication Instructions Recorded Confirmed Type Multivitamin 50 Plus 1 tab PO QDL 04/24/19 05/27/19 History albuterol sulfate 1.25 mg INHALATION BID PRN 04/24/19 05/27/19 History albuterol sulfate 2 inh INHALATION BID PRN 04/24/19 05/27/19 History carvedilol 6.25 mg PO BID 04/24/19 05/27/19 History cyanocobalamin (vitamin B-12) 1,000 mcg PO QDD 04/24/19 05/27/19 History [Vitamin B-12] diclofenac sodium [Voltaren] 2 g TOPICAL QID PRN 04/24/19 05/27/19 History epinephrine [EpiPen] 0.3 mg IM Q3H PRN 04/24/19 05/27/19 History ferrous sulfate 325 mg PO QDL 04/24/19 05/27/19 History finasteride 5 mg PO HS 04/24/19 05/27/19 History fluticasone propion-salmeterol 1 inh INHALATION BID PRN 04/24/19 05/27/19 History [Advair Diskus] furosemide [Lasix] 80 mg PO QAM 04/24/19 05/27/19 History insulin lispro [Humalog KwikPen 10 unit SUBCUT UD PRN 04/24/19 05/27/19 History Insulin] omeprazole 20 mg PO QAM 04/24/19 05/27/19 History paroxetine HCl [Paxil] 20 mg PO BID 04/24/19 05/27/19 History potassium chloride [Klor-Con M20] 20 meq PO BID 04/24/19 05/27/19 History pramipexole [Mirapex] 1.5 mg PO TID 04/24/19 05/27/19 History terazosin 5 mg PO HS 04/24/19 05/27/19 History tizanidine 4 mg PO HS PRN 04/24/19 05/27/19 History trazodone 200 mg PO HS 04/24/19 05/27/19 History cefdinir 300 mg capsule 300 mg PO Q12H #60 cap 05/03/19 05/27/19 Rx Eliquis 5 mg PO BID #0 tab 05/14/19 05/27/19 Rx aspirin [Aspirin Low Dose] 81 mg PO QAM #0 tab 05/14/19 05/27/19 Rx phenazopyridine [Pyridium] 200 mg PO Q8H PRN #20 tab 05/14/19 05/27/19 Rx acetaminophen [Tylenol Extra 500 mg PO Q6H PRN 05/27/19 05/27/19 History Strength] allopurinol 300 mg PO QDL 05/27/19 05/27/19 History atorvastatin 20 mg PO HS 05/27/19 05/27/19 History furosemide 40 mg PO QDD 05/27/19 05/27/19 History metolazone 5 mg PO MOWEFR 05/27/19 05/27/19 History Patient History Medical History Anxiety Asthma Atrial fibrillation hx Barretts esophagus Benign essential tremor Cervical vertebral fracture limited range of motion Chronic back pain Degenerative disc disease Diabetes mellitus, type 2 diet controlled -- has humalog only prn (has not used since 2016) Diverticular disease Gall bladder stones GERD (gastroesophageal reflux disease) hx H/O retained foreign body fully removed bilateral eyes (removal of metal) H/O tongue cancer "pre cancerous lesions" Horseshoe kidney Hx of pneumothorax ~1981 r/t trauma Hyperlipidemia Hypertension Kidney stones Lumbar vertebral fracture Lung nodules believed to be calcified asbestos Myocardial Infarction possibly found on old EKG and also during ~2004 knee arthroscopy ([facility]) Neck pain On anticoagulant therapy Osteoarthritis Peptic ulcer disease hx Peripheral neuropathy bilateral legs Pneumonia hx Pyelonephritis Rheumatoid arthritis Sleep apnea CPAP UTI (urinary tract infection) CURRENTLY ON ABX (PO) WILL BE SEEING DR SHEEHAN FOR IV ABX Surgical History Fusion of spine Lumbar History of adenoidectomy History of arthroscopy of both knees History of bronchoscopy History of cardiac cath x2 total --> Aug 10, 2017 (most recent) [facility]. No stents. 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 Beliefs That Will Affect Care: None Current Living Situation: Family Other Information That Helps Us Care for You: No Feels Safe at Home: Yes Safety Concerns: Feels Safe At This Time Smoking Status: Never smoker Tobacco Type: smokeless tobacco ; Do You Dip or Chew Tobacco: No (quit) ; Second Hand Exposure: No ; Hx Alcohol Use: No Hx Substance Use: No Review of Systems Review of Systems: Constitutional: Denies fever, chills, sweats, malaise Eyes: Denies problem reported ENMT: Denies dizziness Resp: Denies cough, Denies shortness of breath CV: Denies JVD GI: Denies nausea/vomiting : See HPI MS: Denies swelling, stiffness Integ: Denies rash, erythema Neuro: Denies falls, weakness Psych: Denies behavior change Endo: Denies polyphagia, polydipsia Heme: Denies easy bleeding Physical Exam Constitutional: no acute distress and not ill appearing Eyes: no nystagmus ENMT: Ears: no hearing impairment Neck: trachea midline Respiratory: no respiratory distress and no cough Cardiovascular: Vessels: no JVD Chest (Breasts): Chest: normal inspection of chest Gastrointestinal (Abdomen): Inspection/Auscultation: abdomen not distended and no abdominal edema Percussion/Palpation: abdomen soft; abdomen nontender obese abdomen; nontender on palpation no suprapubic tenderness upon palpation Musculoskeletal: Head/Neck/Chest: normocephalic and head atraumatic Skin: no rashes, warm and dry Neurologic: awake; not confused and not obtunded Psychiatric: Orientation: alert and oriented x 3 Eye Contact: good eye contact Affect: no depressed affect Genitourinary: no CVA tenderness Lymphatic: no lymphadenopathy and no lymphedema Results & Data Vital Signs (Past 12 Hours) Vital Signs Temp Pulse Pulse Resp BP Pulse Ox 05/28/19 07:14 36.9 C 70 16 135/85 95 05/27/19 23:29 37.5 C 68 20 125/74 96 05/27/19 20:15 81 18 95 PG Care Time/CCT Total # of Minutes Spent Total Time Spent with Patient: Total time spent is greater than 50% in coordination of care (as documented) at patient's floor/unit and/or counseling patient:
[2019-05-28] MEDS: APIXABAN 5 MG TABLET PO SCH ×2 (08:58→20:51)
[2019-05-28] MEDS: ASPIRIN 81 MG ECTAB PO SCH (08:58)
[2019-05-28] MEDS: PARoxetine HCl 20 MG TAB PO SCH ×2 (08:58→20:51)
[2019-05-28] MEDS: PANTOprazole 40 MG TAB PO SCH (08:58)
[2019-05-28] MEDS: POTASSIUM CHLORIDE 20 MEQ TABCR PO SCH ×2 (08:59→20:50)
[2019-05-28] MEDS: carvediloL 6.25 MG TAB PO SCH ×2 (08:59→20:50)
[2019-05-28] MEDS: PRAMIPEXOLE DIHYDROCHLO 0.5 MG TAB PO SCH ×3 (08:59→20:51)
[2019-05-28] MEDS ORDERED: FUROSEMIDE 80 MG TAB PO SCH (09:00)
[2019-05-28] MEDS ORDERED: VANCOMYCIN HCL 500 MG in SODIUM CHLORIDE 0.9% 250 ML IV SCH (09:00)
[2019-05-28] MEDS: INSULIN ASPART 100 UNITS/ML 3 ML PEN SC SCH ×4 (09:12→21:02)
[2019-05-28] MEDS ORDERED: PNEUMOCOCCAL Polysaccharide Vaccine 25mcg/0.5mL vial/Syr IM ONE (10:30)
[2019-05-28] MEDS ORDERED: VANCOMYCIN HCL 2,750 MG in SODIUM CHLORIDE 0.9% 500 ML IV ONE (11:00)
[2019-05-28] MEDS: allopurinoL 300 MG TAB PO SCH (11:15)
[2019-05-28] MEDS: FERROUS SULFATE 325 MG TAB PO SCH (11:15)
--- NOTE | 2019-05-28 12:53 | Infectious Disease Consult ---
Date of Consultation May 28, 2019 Assessment & Plan (1) UTI (urinary tract infection): 58-year-old male with history of horseshoe kidney, recurrent nephrolithiasis, recurrent urinary tract infection now presents with likely pyelonephritis and urinary tract infection following stent procedure and lithotripsy. Appears to be responding to current antibiotics, would continue present therapy for now given previous isolation of coag negative staph and current growth of gram-negative bacilli. Will adjust antibiotics once final culture results are available. Will follow. (2) Pyelonephritis: History of Present Illness Reason for Consultation: Coag negative staph UTI, pyelonephritis Attending Physician: Jenelle Mandujano MD History of Present Illness 58-year-old male well-known to me from infectious disease follow-up, with history of hypertension, hyperlipidemia, type 2 diabetes mellitus, known horseshoe kidney, who I have been following for recurrent urinary tract infection in the setting of nephrolithiasis. He had been having recurrent infections with E. coli, and had been on prolonged course of Omnicef pending stenting and lithotripsy. He underwent this procedure May 14, and was well until several days ago when he began to develop fever and chills, with fever up to 104 degrees, along with some right flank pain. He ultimately came to the emergency department and was admitted for further management. He was started empirically on vancomycin and cefepime, and this morning he is feeling si gnificantly better with resolution of chills and fever. Urine culture from the time of his procedure grew coagulase-negative staph, and urine now reported growing gram-negative bacilli. Blood cultures are pending. Allergies Allergy/AdvReac Type Severity Reaction Status Date / Time bee venom protein (honey bee) Allergy Severe Anaphylaxis Verified 05/27/19 11:46 amitriptyline Allergy Intermediate Tachycardia Verified 05/27/19 11:46 budesonide [From Symbicort] Allergy Intermediate Tachycardia Verified 05/27/19 11:46 formoterol [From Symbicort] Allergy Intermediate Tachycardia Verified 05/27/19 11:46 gabapentin [From Neurontin] Allergy Intermediate tachycardia Verified 05/27/19 11:46 c pregabalin [From Lyrica] Allergy Intermediate Tachycardia Verified 05/27/19 11:46 fentanyl Allergy Unknown patch only Verified 05/27/19 11:46 - tachycardia sumac Allergy Severe Anaphylaxis Uncoded 05/27/19 11:46 Home Medications Home Medications Medication Instructions Recorded Confirmed Type Multivitamin 50 Plus 1 tab PO QDL 04/24/19 05/27/19 History albuterol sulfate 1.25 mg INHALATION BID PRN 04/24/19 05/27/19 History albuterol sulfate 2 inh INHALATION BID PRN 04/24/19 05/27/19 History carvedilol 6.25 mg PO BID 04/24/19 05/27/19 History cyanocobalamin (vitamin B-12) 1,000 mcg PO QDD 04/24/19 05/27/19 History [Vitamin B-12] diclofenac sodium [Voltaren] 2 g TOPICAL QID PRN 04/24/19 05/27/19 History epinephrine [EpiPen] 0.3 mg IM Q3H PRN 04/24/19 05/27/19 History ferrous sulfate 325 mg PO QDL 04/24/19 05/27/19 History finasteride 5 mg PO HS 04/24/19 05/27/19 History fluticasone propion-salmeterol 1 inh INHALATION BID PRN 04/24/19 05/27/19 History [Advair Diskus] furosemide [Lasix] 80 mg PO QAM 04/24/19 05/27/19 History insulin lispro [Humalog KwikPen 10 unit SUBCUT UD PRN 04/24/19 05/27/19 History Insulin] omeprazole 20 mg PO QAM 04/24/19 05/27/19 History paroxetine HCl [Paxil] 20 mg PO BID 04/24/19 05/27/19 History potassium chloride [Klor-Con M20] 20 meq PO BID 04/24/19 05/27/19 History pramipexole [Mirapex] 1.5 mg PO TID 04/24/19 05/27/19 History terazosin 5 mg PO HS 04/24/19 05/27/19 History tizanidine 4 mg PO HS PRN 04/24/19 05/27/19 History trazodone 200 mg PO HS 04/24/19 05/27/19 History cefdinir 300 mg capsule 300 mg PO Q12H #60 cap 05/03/19 05/27/19 Rx Eliquis 5 mg PO BID #0 tab 05/14/19 05/27/19 Rx aspirin [Aspirin Low Dose] 81 mg PO QAM #0 tab 05/14/19 05/27/19 Rx phenazopyridine [Pyridium] 200 mg PO Q8H PRN #20 tab 05/14/19 05/27/19 Rx acetaminophen [Tylenol Extra 500 mg PO Q6H PRN 05/27/19 05/27/19 History Strength] allopurinol 300 mg PO QDL 05/27/19 05/27/19 History atorvastatin 20 mg PO HS 05/27/19 05/27/19 History furosemide 40 mg PO QDD 05/27/19 05/27/19 History metolazone 5 mg PO MOWEFR 05/27/19 05/27/19 History Patient History Medical History Anxiety Asthma Atrial fibrillation hx Barretts esophagus Benign essential tremor Cervical vertebral fracture limited range of motion Chronic back pain Degenerative disc disease Diabetes mellitus, type 2 diet controlled -- has humalog only prn (has not used since 2016) Diverticular disease Gall bladder stones GERD (gastroesophageal reflux disease) hx H/O retained foreign body fully removed bilateral eyes (removal of metal) H/O tongue cancer "pre cancerous lesions" Horseshoe kidney Hx of pneumothorax ~1981 r/t trauma Hyperlipidemia Hypertension Kidney stones Lumbar vertebral fracture Lung nodules believed to be calcified asbestos Myocardial Infarction possibly found on old EKG and also during ~2004 knee arthroscopy ([facility]) Neck pain On anticoagulant therapy Osteoarthritis Peptic ulcer disease hx Peripheral neuropathy bilateral legs Pneumonia hx Pyelonephritis Rheumatoid arthritis Sleep apnea CPAP UTI (urinary tract infection) CURRENTLY ON ABX (PO) WILL BE SEEING DR SHEEHAN FOR IV ABX Surgical History Fusion of spine Lumbar History of adenoidectomy History of arthroscopy of both knees History of bronchoscopy History of cardiac cath x2 total --> Aug 10, 2017 (most recent) [facility]. No stents. 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 Beliefs That Will Affect Care: None marital status: Current Living Situation: Family Other Information That Helps Us Care for You: No Feels Safe at Home: Yes Safety Concerns: Feels Safe At This Time Smoking Status: Never smoker Tobacco Type: smokeless tobacco ; Do You Dip or Chew Tobacco: No (quit) ; Second Hand Exposure: No ; Hx Alcohol Use: No Hx Substance Use: No Review of Systems Review of Systems: All systems reviewed & are unremarkable except as noted in HPI & below Physical Exam Constitutional: WD/WN, vitals as above + obese and comfortable; no acute distress Eyes: PERRL, conjunctivae normal, anicteric sclerae ENMT: external ear and nose normal, oropharynx normal Neck: trachea midline, no thyromegaly neck nontender Respiratory: normal respiratory effort, lungs clear to auscultation normal percussion; does not use accessory muscles Cardiovascular: Rate/Rhythm: regular rate and regular rhythm Heart Sounds: normal S1 and normal S2; no gallop, no murmur and no cardiac rub Vessels: normal peripheral pulses; no JVD Gastrointestinal (Abdomen): normal bowel sounds, soft, nontender, no hepatosplenomegaly Musculoskeletal: no cyanosis or clubbing, extremities motor strength 5/5 Spine: thoracic spine normal to inspection and lumbar spine normal to inspection; no cervical spinal tenderness Skin: no rashes, warm and dry normal turgor; no lesions Neurologic: patellar DTR's 2+ bilat, sensation intact no focal motor deficits Psychiatric: A+Ox3, euthymic affect Orientation: cooperative Lymphatic: no cervical or axillary lymphadenopathy no inguinal lymphadenopathy Results & Data Vital Signs (Past 12 Hours) Vital Signs Temp Pulse Resp BP Pulse Ox 05/28/19 07:14 36.9 C 70 16 135/85 95 Laboratory Results Short CBC 05/28/19 Range/Units 05:22 WBC 4.57 L (4.8-10.8) K/uL Hgb 10.6 L (14.0-18.0) g/dL Hct 32.1 L (42-52) % Plt Count 146 (130-400) K/uL [facility] 05/28/19 05:22 Sodium 135 L Potassium 3.7 Chloride 104 Carbon Dioxide 25 BUN 21 H Creatinine 0.92 Glucose 138 H Calcium 8.7 Liver Function 05/28/19 Range/Units 05:22 Total Bilirubin 0.4 (0.2-1) mg/dl AST 90 H (15-37) U/L ALT 103 H (12-78) U/L Alkaline Phosphatase 77 (45-117) U/L Albumin 2.9 L (3.4-5.0) gm/dl Diagnostic Findings Microbiology 05/27/19 11:19 Urine,Clean Catch Urine Culture - Preliminary Gram negative bacilli ABDOMEN AND PELVIS CT WITHOUT CONTRAST CT DOSE: 1781.94 mGy.cm HISTORY: Generalized abd pain, fever, urinary stent TECHNIQUE: Multiaxial CT images of the abdomen and pelvis were performed without contrast. A dose lowering technique was utilized adhering to the principles of ALARA. COMPARISON STUDY: IVP 04/01/2019. FINDINGS: A 4 mm nodule within the base of the right lower lobe on image 84. Punctate calcified granulomas within the lung bases. Trace bilateral pleural effusions. No pneumoperitoneum. No pneumatosis. Posterior decompression fusion from L2 through S1 with screws and rods. The hardware appears intact. There is abnormal periprosthetic lucency at the L2 and S1 pedicle screws. No fractures within the visualized osseous structures. A few punctate gallstones. No gallbladder wall thickening. The unenhanced liver, spleen, and adrenal glands are within normal limits. Small hiatus hernia. Prior gastric bypass. The unenhanced pancreas is unremarkable. No retroperitoneal lymphadenopathy. Redemonstration of a horseshoe kidney. There is a punctate stone on the left. Multiple stones within the right lower pole widely. Mild perinephric edema. There is a right ureteral stent which appears in good position. No ureteral or bladder stones. No bladder wall thickening. A 2.6 cm exophytic hypodense lesion within the right kidney. This likely represents a cyst. Suboptimal evaluation for bowel pathology due to the lack of intravenous and oral contrast. However, there is no definite bowel wall thickening or obstruction. Colonic diverticulosis. No evidence for diverticulitis. Normal appendix. IMPRESSION: 1. Bilateral nephrolithiasis. No ureteral stones. No hydronephrosis. 2. A right ureteral stent is in good position. 3. Horseshoe kidney. Mild perinephric edema is indeterminate but could be chronic. A pyelonephritis could also have a similar appearance in the appropriate clinical setting. Recommend correlation with urinalysis. 5. No definite bowel wall thickening or obstruction. 6. Cholelithiasis. 7. A 4 mm indeterminate pulmonary nodule within the base of the right lower lobe. Please refer to the chart below for recommended follow-up. 8. Additional findings as described above. Please refer to below summary of Fleischner criteria recommendations for follow- up of incidental CT nodules (Britany Cabrera, Guidelines for management of small pulmonary nodules detected on CT scans: A statement from the Fleischner Society, Radiology 237: [id number].) SOLID NODULES Solitary nodule size: <6 mm * Low risk patients: no follow-up needed * high risk patients: optional CT at 12 months Solitary nodule size: 6-8 mm * Low risk patients: follow-up at 6-12 months, then consider further follow-up at 18-24 months * high risk patients: initial follow-up CT at 6-12 months and then at 18-24 months if no change Solitary nodule size: >8 mm * either low or high risk patients - consider follow-up CT at 3 months, and/or CT-PET, and/or biopsy Multiple nodules size: <6 mm * Low risk patients: no routine follow-up * high risk patients: optional CT at 12 months PG Care Time/CCT Total # of Minutes Spent Total Time Spent with Patient: Total time spent is greater than 50% in coordination of care (as documented) at patient's floor/unit and/or counseling patient:
[2019-05-28] MEDS: CYANOCOBALAMIN 500 MCG TABLET (VITAMIN B-12) PO SCH (16:37)
--- NOTE | 2019-05-28 16:53 | Hospitalist Progress Note ---
Date of Service May 28, 2019 Assessment & Plan (1) Pyelonephritis: - Fever/chills, poor appetite, dark urine and hematuria after failing outpatient PO abx. - S/p lithotripsy and stent placement by Dr. Chou on 05/14/19, on Omnicef post operatively. Ureteral stent was to remain in place x 3 weeks for ureteral tear - CT A/P showed bilat nephrolithiasis, no ureter stones or hydro and right ureter stent in good position; also with mild perinephric edema. - UC pos gram neg bacilli, will follow culture (prev. with coag neg Staph and multi drug resistant E. coli) - Continue Cefepime and Vancomycin IV for empiric coverage. - Bladder scan qshift and straight cath for PVR >500 cc. - ID consulted, appreciate input. - Urology consulted, appreciate input. - IV fluids at 80 cc/hr -- monitor for volume overload, on Lasix at home (holding med currently) (2) Horseshoe kidney: - Noted on CT A/P. (3) Hypertension: - Holding home Lasix and Zaroxolyn as pt. is receiving IV fluids. - Continue Coreg 6.215 mg BID as prescribed. (4) Hyperlipidemia: - Continue statin as prescribed. (5) Atrial fibrillation: - Continue Coreg and Eliquis as prescribed. (6) Diabetes mellitus, type 2: - SSI coverage. - Will order A1C in the morning. (7) Rheumatoid arthritis: - Stable, will monitor. (8) Sleep apnea: - CPAP qhs. (9) Asthma: - No acute exacerbation noted. - Continue home inhalers. (10) GERD (gastroesophageal reflux disease): - PPI qAM. (11) Morbid obesity: - BMI 45; encourage diet and exercise. (12) Anxiety: - Continue Paxil & Trazodone as prescribed. (13) DVT prophylaxis: - Home Eliquis. Dispo: Med/surg; discharge pending UC results. Supervising Physician Co-Signing Physician Notes PA Supervision Note: I did not personally see or examine the patient today, but I verified all nuñez points of JORDY Farley's assessment and plan with the following exceptions/additions: None Subjective Pt. denies pain, urinary retention, hematuria. Has been afebrile. Oral intake is adequate. Review of Systems Review of Systems: All systems reviewed & are unremarkable except as noted in HPI & below Constitutional: no fever, no chills, no fatigue, no weakness and no anorexia Respiratory: no cough, no dyspnea, no dyspnea on exertion and no wheezing Cardiovascular: no chest pain, no palpitations and no edema Gastrointestinal: no abdominal pain, no nausea and no constipation Genitourinary: no dysuria, no difficulty urinating and no hematuria Musculoskeletal: no back pain and no joint pain Integumentary: no non-healing lesions Physical Exam Physical Exam: General: Resting comfortably HEENT: NC/AT; PERRLA with EOMI; [place] conjunctiva, MMM. No erythema of posterior pharynx Neck: Supple and nontender Cardiac: RRR Lungs: CTA bilaterally Abdomen: Bowel normoactive X 4; Nontender to palpation Extremities: Warm. No edema present Neuro: No focal weakness Skin: No rash Results & Data Vital Signs (Past 12 Hours) Vital Signs Temp Pulse Resp BP Pulse Ox 05/28/19 15:08 37.1 C 66 18 117/75 95 05/28/19 07:14 36.9 C 70 16 135/85 95 Laboratory Results 05/28/19 05/28/19 05/28/19 Range/Units 12:19 08:27 05:22 WBC (4.8-10.8) K/uL RBC (4.7-6.1) M/uL Hgb (14.0-18.0) g/dL Hct (42-52) % MCV (80-100) fL MCH (25-34) pg MCHC (32-36) g/dL RDW Std Deviation (36.4-46.3) fL RDW Coeff of Fitz (11.5-14.5) % Plt Count (130-400) K/uL MPV (7.4-10.4) fL Sodium (136-145) mmol/L Potassium (3.5-5.1) mmol/L Chloride (98-107) mmol/L Carbon Dioxide (21-32) mmol/L Anion Gap (3-11) BUN (7-18) mg/dl Creatinine (0.6-1.4) mg/dl Est Cr Clr Drug Dosing ml/min Est GFR ( Amer) Est GFR (Non-Af Amer) BUN/Creatinine Ratio (10-20) Glucose (70-99) mg/dl POC Glucose 160 H 136 H (70-99) Calcium (8.5-10.1) mg/dl Total Bilirubin (0.2-1) mg/dl AST (15-37) U/L ALT (12-78) U/L Alkaline Phosphatase (45-117) U/L Total Protein (6.4-8.2) gm/dl Albumin (3.4-5.0) gm/dl Globulin (2.5-4.0) gm/dl Albumin/Globulin Ratio (0.9-2) Hepatitis C Ab Screen Neg (Neg) 05/28/19 05/28/19 05/28/19 Range/Units 05:22 05:22 05:01 WBC 4.57 L (4.8-10.8) K/uL RBC 3.51 L (4.7-6.1) M/uL Hgb 10.6 L (14.0-18.0) g/dL Hct 32.1 L (42-52) % MCV 91.5 (80-100) fL MCH 30.2 (25-34) pg MCHC 33.0 (32-36) g/dL RDW Std Deviation 49.2 H (36.4-46.3) fL RDW Coeff of Fitz 14.6 H (11.5-14.5) % Plt Count 146 (130-400) K/uL MPV 9.6 (7.4-10.4) fL Sodium 135 L (136-145) mmol/L Potassium 3.7 (3.5-5.1) mmol/L Chloride 104 (98-107) mmol/L Carbon Dioxide 25 (21-32) mmol/L Anion Gap 6.0 (3-11) BUN 21 H (7-18) mg/dl Creatinine 0.92 (0.6-1.4) mg/dl Est Cr Clr Drug Dosing 131.0 ml/min Est GFR ( Amer) 105.1 Est GFR (Non-Af Amer) 90.7 BUN/Creatinine Ratio 22.4 H (10-20) Glucose 138 H (70-99) mg/dl POC Glucose 140 H (70-99) Calcium 8.7 (8.5-10.1) mg/dl Total Bilirubin 0.4 (0.2-1) mg/dl AST 90 H (15-37) U/L ALT 103 H (12-78) U/L Alkaline Phosphatase 77 (45-117) U/L Total Protein 6.9 (6.4-8.2) gm/dl Albumin 2.9 L (3.4-5.0) gm/dl Globulin 4.0 (2.5-4.0) gm/dl Albumin/Globulin Ratio 0.7 L (0.9-2) Hepatitis C Ab Screen (Neg) 05/27/19 05/27/19 Range/Units 20:50 17:18 WBC (4.8-10.8) K/uL RBC (4.7-6.1) M/uL Hgb (14.0-18.0) g/dL Hct (42-52) % MCV (80-100) fL MCH (25-34) pg MCHC (32-36) g/dL RDW Std Deviation (36.4-46.3) fL RDW Coeff of Fitz (11.5-14.5) % Plt Count (130-400) K/uL MPV (7.4-10.4) fL Sodium (136-145) mmol/L Potassium (3.5-5.1) mmol/L Chloride (98-107) mmol/L Carbon Dioxide (21-32) mmol/L Anion Gap (3-11) BUN (7-18) mg/dl Creatinine (0.6-1.4) mg/dl Est Cr Clr Drug Dosing ml/min Est GFR ( Amer) Est GFR (Non-Af Amer) BUN/Creatinine Ratio (10-20) Glucose (70-99) mg/dl POC Glucose 141 H 157 H (70-99) Calcium (8.5-10.1) mg/dl Total Bilirubin (0.2-1) mg/dl AST (15-37) U/L ALT (12-78) U/L Alkaline Phosphatase (45-117) U/L Total Protein (6.4-8.2) gm/dl Albumin (3.4-5.0) gm/dl Globulin (2.5-4.0) gm/dl Albumin/Globulin Ratio (0.9-2) Hepatitis C Ab Screen (Neg) PG Care Time/CCT Total # of Minutes Spent Total Time Spent with Patient: Total time spent is greater than 50% in coordination of care (as documented) at patient's floor/unit and/or counseling patient:
[2019-05-28] MEDS: TERAZOSIN HCL 5 MG CAP PO SCH (20:50)
[2019-05-28] MEDS: ATORVASTATIN 20 MG TAB PO SCH (20:50)
[2019-05-28] MEDS: FINASTERIDE 5 MG TAB PO SCH (20:51)
[2019-05-28] MEDS: TRAZODONE HCL 100 MG TAB PO SCH (20:51)
[2019-05-28] MEDS: VANCOMYCIN HCL 2,000 MG in SODIUM CHLORIDE 0.9% 500 ML IV SCH (22:26)
[2019-05-29] MEDS: CEFEPIME 2,000 MG in SYRINGE 7.5 ML IV SCH ×2 (01:47→08:45)
[2019-05-29 08:15] LABS: Hematocrit (blood only) 32.7 % (42-52); Hemoglobin 10.9 g/dL (14.0-18.0); Mean Corpuscular Hgb Conc 33.3 g/dL (32-36); Mean Corpuscular Volume 92.9 fL (80-100); Mean Platelet Volume 9.1 fL (7.4-10.4); Platelet Count 174 K/uL (130-400); RDW Coefficient of Variation 14.3 % (11.5-14.5); RDW Standard Deviation 48.7 fL (36.4-46.3); Red Blood Count 3.52 M/uL (4.7-6.1); White Blood Count 6.15 K/uL (4.8-10.8)
[2019-05-29] MEDS ORDERED: metOLazone 5 MG TABLET PO SCH (08:30)
[2019-05-29 08:39] LABS: BUN Creatinine Ratio 19.1 (10-20); Calcium 9.5 mg/dl (8.5-10.1); Creatinine Clr Calc Pharmacy 142.7 ml/min; Est GFR (African American) 110.5; Est GFR (Non-African American) 95.4; Potassium 4.1 mmol/L (3.5-5.1)
[2019-05-29 08:42] LABS: Albumin Globulin Ratio 0.7 (0.9-2); Bilirubin,Total 0.5 mg/dl (0.2-1); Globulin 4.1 gm/dl (2.5-4.0); Total Protein 7.1 gm/dl (6.4-8.2)
[2019-05-29] MEDS: INSULIN ASPART 100 UNITS/ML 3 ML PEN SC SCH ×2 (08:43→12:36)
[2019-05-29] MEDS: PARoxetine HCl 20 MG TAB PO SCH (08:46)
[2019-05-29] MEDS: PANTOprazole 40 MG TAB PO SCH (08:46)
[2019-05-29] MEDS: APIXABAN 5 MG TABLET PO SCH (08:46)
[2019-05-29] MEDS: PRAMIPEXOLE DIHYDROCHLO 0.5 MG TAB PO SCH ×2 (08:46→12:35)
[2019-05-29] MEDS: ASPIRIN 81 MG ECTAB PO SCH (08:46)
[2019-05-29] MEDS: carvediloL 6.25 MG TAB PO SCH (08:47)
[2019-05-29] MEDS: POTASSIUM CHLORIDE 20 MEQ TABCR PO SCH (08:47)
[2019-05-29 09:17] LABS: Estimated Average Glucose 143 mg/dl; Hemoglobin A1C 6.6 % (4.5-5.6)
--- NOTE | 2019-05-29 10:12 | Urology Progress Note ---
Date of Service May 29, 2019 Assessment & Plan (1) Pyelonephritis: 58yo M with significant hx of horseshoe kidney, recurrent UTIs, stones, admitted via [facility] ER for fever (104F at home), chills, sweats. S/p cysto, right LL, right ureteral stent placement by Dr. Chou on 05/14. UC&S growing Enterobacter with some resistance BCx prelim negative x24 hours. Abx per ID. Discussed followup plan with Dr. Chou, plan for IVP and stent removal as scheduled on 06/07 as long as UTI symptoms are controlled. Pt understands. Thank you for allowing us to participate in the acute care of Mr. Handley. Please reconsult us with additional questions, concerns or changes in patient status. Subjective 58yo M with significant hx of horseshoe kidney, recurrent UTIs, stones, admitted via [facility] ER for fever (104F at home), chills, sweats. S/p cysto, right LL, right ureteral stent placement by Dr. Chou on 05/14. Doing well today, sitting up on side of bed. Slept better with home CPAP last evening Afebrile x24 hours No new issues Voiding spontaneously without issue Bladder scan reports reviewed - minimal yesterday. Labs stable Review of Systems Review of Systems: All systems reviewed & are unremarkable except as noted in HPI & below Physical Exam Physical Exam: a&Ox3 RRR abd obese soft Results & Data Vital Signs (Past 12 Hours) Vital Signs Temp Pulse Resp BP Pulse Ox 05/29/19 07:19 37.1 C 55 L 16 135/80 95 05/28/19 23:00 36.6 C 64 18 132/79 97 05/28/19 20:49 72 117/66 PG Care Time/CCT Total # of Minutes Spent Total Time Spent with Patient: Total time spent is greater than 50% in coordination of care (as documented) at patient's floor/unit and/or counseling patient:
--- NOTE | 2019-05-29 10:19 | Infectious Disease Progress Nt ---
Date of Service May 29, 2019 Assessment & Plan (1) Pyelonephritis: Patient with urinary tract infection, probable pyelonephritis following lithotripsy and stent placement, with cultures positive for Enterobacter cloacae. Patient should be able to be treated with oral ciprofloxacin 500 mg twice daily, suggest 2 to 3 weeks of oral therapy. Has follow-up visit scheduled for Dr. Bailey as outpatient. (2) Infection caused by Enterobacter cloacae: Subjective Patient seen in follow-up for urinary tract infection/pyelonephritis following lithotripsy and stent placement. Blood cultures remain negative, urine cultures growing Enterobacter cloacae, resistant to cephalosporins, sensitive to quinolones. Feeling better, no pain. Remains afebrile. Review of Systems Review of Systems: All systems reviewed & are unremarkable except as noted in HPI & below Physical Exam Constitutional: WD/WN, vitals as above + obese and comfortable; no acute distress Eyes: PERRL, conjunctivae normal, anicteric sclerae ENMT: external ear and nose normal, oropharynx normal Neck: trachea midline, no thyromegaly neck nontender Respiratory: normal respiratory effort, lungs clear to auscultation normal percussion; does not use accessory muscles Cardiovascular: Rate/Rhythm: regular rate and regular rhythm Heart Sounds: normal S1 and normal S2; no gallop, no murmur and no cardiac rub Vessels: normal peripheral pulses; no JVD Gastrointestinal (Abdomen): normal bowel sounds, soft, nontender, no hepatosplenomegaly Musculoskeletal: no cyanosis or clubbing, extremities motor strength 5/5 Spine: thoracic spine normal to inspection and lumbar spine normal to inspection; no cervical spinal tenderness Skin: no rashes, warm and dry normal turgor; no lesions Neurologic: patellar DTR's 2+ bilat, sensation intact no focal motor deficits Psychiatric: A+Ox3, euthymic affect Orientation: cooperative Lymphatic: no cervical or axillary lymphadenopathy no inguinal lymphadenopathy Results & Data Vital Signs (Past 12 Hours) Vital Signs Temp Pulse Resp BP Pulse Ox 05/29/19 07:19 37.1 C 55 L 16 135/80 95 05/28/19 23:00 36.6 C 64 18 132/79 97 Laboratory Results Short CBC 05/29/19 Range/Units 07:59 WBC 6.15 (4.8-10.8) K/uL Hgb 10.9 L (14.0-18.0) g/dL Hct 32.7 L (42-52) % Plt Count 174 (130-400) K/uL BMP 05/29/19 07:59 Sodium 136 Potassium 4.1 Chloride 107 Carbon Dioxide 25 BUN 16 Creatinine 0.85 Glucose 131 H Calcium 9.5 Liver Function 05/29/19 Range/Units 07:59 Total Bilirubin 0.5 (0.2-1) mg/dl AST 44 H (15-37) U/L ALT 87 H (12-78) U/L Alkaline Phosphatase 86 (45-117) U/L Albumin 3.0 L (3.4-5.0) gm/dl Diagnostic Findings Microbiology 05/27/19 11:19 Urine,Clean Catch Urine Culture - Final Enterobacter cloacae 05/27/19 11:55 Blood Aerobic Blood Culture - Preliminary No growth in Aerobic bottle after 24 hours. 05/27/19 11:55 Blood Anaerobic Blood Culture - Preliminary No growth in Anaerobic bottle after 24 hours. 05/27/19 11:56 Blood Aerobic Blood Culture - Preliminary No growth in Aerobic bottle after 24 hours. 05/27/19 11:56 Blood Anaerobic Blood Culture - Preliminary No growth in Anaerobic bottle after 24 hours. PG Care Time/CCT Total # of Minutes Spent Total Time Spent with Patient: Total time spent is greater than 50% in coordination of care (as documented) at patient's floor/unit and/or counseling patient:
[2019-05-29] MEDS: VANCOMYCIN HCL 2,000 MG in SODIUM CHLORIDE 0.9% 500 ML IV SCH (10:25)
[2019-05-29] MEDS ORDERED: CIPROFLOXACIN 500 MG TAB PO SCH (10:30)
[2019-05-29] MEDS: FERROUS SULFATE 325 MG TAB PO SCH (11:36)
[2019-05-29] MEDS: allopurinoL 300 MG TAB PO SCH (11:36)
--- NOTE | 2019-05-29 13:24 | Discharge Summary ---
Date of Service May 29, 2019 Admission HPI Per Admitting Provider This is a 58 yo M with PMHx of AFib, HTN, HLD, hx of SD, lumbar vertebral fracture, lung nodules attributed to calcified asbestos, asthma, DM II, GERD, RA, JONATHON on CPAP, chronic back and neck pain anxiety, horseshoe kidney and nephrolithiasis with hx of complicated UTI in the setting of nephrolithiasis ith E. Coli. Had been placed on omnicef as an outpatient since the basket stone removal on 05/14/19. The patient notes that he developed fever, chills, sweats starting on Monday. He notes having spiked a fever of 104 over the weekend and took Tylenol however had rebound spiking fevers. His appetite was fairly poor, but was able to take in fluids. He notes his urine is dark and cloudy, with occasional hematuria. He reports having lightheadedness and dizziness but thinks this is due to his poor oral intake. He denies any issues regarding his heart or shortness of breath. His who is at bedside reports that he has not been confused despite his fevers over the weekend. His symptoms progressed and called his urologist this morning who instructed him to go to the ER. Admission Exam Per Admitting Provider General: awake, alert, no apparent distress, + morbidly obese Head: Normocephalic, atraumatic ENT: PERRL, EOMI, no pharyngeal exudate, mucous membranes moist Chest: Clear to auscultation, on room air, no adventitious breath sounds Cardiac: Regular rate and rhythm, no murmur, no JVD, normal peripheral pulses, good capillary refill Abdominal: NABS x 4 quadrants, soft, nontender to palpation, no rebound, guar ding or tenderness Extremities: Normal inspection, no peripheral edema or erythema, calfs nontender to palpation Psych: Normal mood and affect Neuro: AAO x 3, strength intact bilaterally and related 5/5, no motor deficits, speech is clear, no peripheral sensory deficits Skin: no rash or erythema Principal Diagnosis Pyelonephritis Discharge Exam General: Resting comfortably HEENT: NC/AT; PERRLA with EOMI; [place] conjunctiva, MMM. No erythema of posterior pharynx Neck: Supple and nontender Cardiac: RRR Lungs: CTA bilaterally Abdomen: Bowel normoactive X 4; Nontender to palpation Extremities: Warm. No edema present Neuro: No focal weakness Skin: No rash Discharge Data Allergies Allergy/AdvReac Type Severity Reaction Status Date / Time bee venom protein (honey bee) Allergy Severe Anaphylaxis Verified 05/27/19 11:46 amitriptyline Allergy Intermediate Tachycardia Verified 05/27/19 11:46 budesonide [From Symbicort] Allergy Intermediate Tachycardia Verified 05/27/19 11:46 formoterol [From Symbicort] Allergy Intermediate Tachycardia Verified 05/27/19 11:46 gabapentin [From Neurontin] Allergy Intermediate tachycardia Verified 05/27/19 11:46 c pregabalin [From Lyrica] Allergy Intermediate Tachycardia Verified 05/27/19 11:46 fentanyl Allergy Unknown patch only Verified 05/27/19 11:46 - tachycardia sumac Allergy Severe Anaphylaxis Uncoded 05/27/19 11:46 Consultations 05/27/19 13:58 ED Decision to Admit Stat 05/27/19 16:29 Consult Case Management - Discharge Planning Routine Consult Infectious Diseases Routine Consult Urology Stat Ordered Studies 05/27/19 11:24 CT abd pelvis wo con Stat Hospital Course (1) Pyelonephritis: Fever/chills, poor appetite, dark urine and hematuria after failing outpatient PO abx. S/p lithotripsy and stent placement by Dr. Chou on 05/14/19, on Omnicef post operatively. Ureteral stent was to remain in place x 3 weeks for ureteral tear. CT A/P showed bilat nephrolithiasis, no ureter stones or hydro and right ureter stent in good position; also with mild perinephric edema. UC pos Enterobacter cloacae (prev. with coag neg Staph and multi drug resistant E. coli) Received Cefepime/Vanc as inpt; convert to Cipro PO at discharge per sensitivities-3 weeks worth given. ID and urology consulted, appreciate input. Received IV fluids and held home Lasix. (2) Horseshoe kidney: Noted on CT A/P. (3) Hypertension: Held home Lasix and Zaroxolyn in setting of IV fluids. Continued Coreg 6.215 mg BID as prescribed. Resume Lasix 40 mg BID & Zaroxolyn at home then increase back to home dose of 80 mg BID if he develops weight gain/LE edema. (4) Hyperlipidemia: Continued statin as prescribed. (5) Atrial fibrillation: Continued Coreg and Eliquis as prescribed. (6) Diabetes mellitus, type 2: SSI coverage. A1C is 6.6. (7) Rheumatoid arthritis: Stable, will monitor. (8) Sleep apnea: CPAP qhs. (9) Asthma: No acute exacerbation noted. Continued home inhalers. (10) GERD (gastroesophageal reflux disease): PPI qAM. (11) Morbid obesity: BMI 45; encourage diet and exercise. (12) Anxiety: Continued Paxil & Trazodone as prescribed. (13) Lung nodules: RLL 4 mm indeterminate pulm nodule noted on CT abd/pel. With known history of pulm nodules in chart Follow up as outpt with appropriate CT surveillance (14) DVT prophylaxis: Home Eliquis. Discharged to home on 05/29/19. Total Time Total Time Spent Total Time Spent (In Minutes): >30 minutes Total Time Includes: Examination of the Patient, Discharge Planning, Medication Reconciliation, Communication With Other Providers and Other Discharge Plan Discharge Items Patient Disposition: Home - Self-Care Reason For Visit: PYELONEPHITIS, UTI Discharge Diagnosis: UTI, Pyelonephritis Condition on Discharge: Fair Goals: You have been hospitalized for an acute medical problem. During your stay at [facility], we have made an effort to correct the problem that brought you to the hospital while keeping you as comfortable as possible. Medications were used to bring your condition under control and your discharge instructions will include directions for any medications you should take after leaving the hospital. Please make sure you see your Primary Care Provider as part of your follow up plan. Activity: As commented below Exercise/Sports: Wait until after follow-up appointment Non-emergency contact: Primary Care Provider and Urologist Call non-emergency contact if: you have any medication questions, your symptoms worsen, your pain is not controlled and you have a fever Follow-up/Referrals: Harsh Chou MD [Physician] - 06/07/19 12:30 pm (Please, follow up at [facility] Urology Office with Dr. Chou on MondayJune 07 at 12:30 pm. *The office is located at [address] [place] [address] in [place]. If you need to change this appointment, call the office at [phone].) Javier Shah D.O. [Primary Care Provider] - 06/05/19 1:15 pm (Please, follow up at Dr. Shah's office on MondayJune 05 at 1:15 pm. *If you need to change this appointment, call the office at [phone].) Diet: Carb Consistent or DM2 and Heart Healthy Addtl Attending Provider Instructions: 1. Pyelonephritis * Please take Ciprofloxacin 500 mg twice daily. You will need to continue this medication over the next few weeks unless instructed otherwise by urology. * Please follow up with urology to discuss stent removal/continued antibiotics. 2. Lower Extremity Swelling * Resume Lasix at 40 mg twice daily. * Continue to monitor daily weights. * Increase Lasix to 80 mg twice daily (previous home dosing) if weight continues to trend up or you develop increased leg edema. * Please follow up with PCP to discuss Lasix management. Pending Studies at Discharge: Yes Studies:: Blood cultures 05/27/19: negative (prelim) Stand-Alone Forms: My [facility] Medications and DC Order Prescriptions: New ciprofloxacin HCl 500 mg Tablet 500 mg PO BID 21 Days Qty: 42 RF: 0 Continued metolazone 2.5 mg tablet 5 mg PO MOWEFR RF: 0 atorvastatin 20 mg Tablet 20 mg PO HS RF: 0 allopurinol 300 mg tablet 300 mg PO QDL RF: 0 acetaminophen [Tylenol Extra Strength] 500 mg Tablet 500 mg PO Q6H PRN (Reason: Pain) RF: 0 terazosin 5 mg Capsule 5 mg PO HS RF: 0 carvedilol 6.25 mg Tablet 6.25 mg PO BID RF: 0 tizanidine 4 mg Tablet 4 mg PO HS PRN (Reason: MUSCLE SPASMS) RF: 0 albuterol sulfate 1.25 mg/3 mL Solution For Nebulization 1.25 mg INHALATION BID PRN (Reason: ASTHMA) RF: 0 cyanocobalamin (vitamin B-12) [Vitamin B-12] 1,000 mcg Tablet 1,000 mcg PO QDD RF: 0 potassium chloride [Klor-Con M20] 20 mEq Tablet,Er Particles/Crystals 20 meq PO BID RF: 0 trazodone 100 mg Tablet 200 mg PO HS RF: 0 paroxetine HCl [Paxil] 20 mg Tablet 20 mg PO BID RF: 0 ferrous sulfate 325 mg (65 mg iron) Tablet 325 mg PO QDL RF: 0 fluticasone propion-salmeterol [Advair Diskus] 500-50 mcg/dose Blister With Device 1 inh INHALATION BID PRN (Reason: Shortness Of Breath Or Wheezing) RF: 0 epinephrine [EpiPen] 0.3 mg/0.3 mL Auto-Injector 0.3 mg IM Q3H PRN (Reason: Allergic Reaction) RF: 0 pramipexole [Mirapex] 1.5 mg Tablet 1.5 mg PO TID RF: 0 Multivitamin 50 Plus Tablet 1 tab PO QDL RF: 0 insulin lispro [Humalog KwikPen Insulin] 100 unit/mL Insulin Pen 10 unit SUBCUT UD PRN (Reason: Hyperglycemia) RF: 0 diclofenac sodium [Voltaren] 1 % Gel 2 g TOPICAL QID PRN (Reason: Pain) RF: 0 omeprazole 20 mg Tablet,Delayed Release (Dr/Ec) 20 mg PO QAM RF: 0 albuterol sulfate 90 mcg/actuation Aerosol Powdr Breath Activated 2 inh INHALATION BID PRN (Reason: ASTHMA) RF: 0 finasteride 5 mg tablet 5 mg PO HS RF: 0 aspirin [Aspirin Low Dose] 81 mg Tablet,Delayed Release (Dr/Ec) 81 mg PO QAM Qty: 0 RF: 0 Eliquis 5 mg Tablet 5 mg PO BID Qty: 0 RF: 0 Changed furosemide 40 mg tablet 40 mg PO BID Qty: 0 RF: 0 Discontinued cefdinir 300 mg capsule 300 mg PO Q12H Qty: 60 RF: 1 furosemide [Lasix] 40 mg Tablet 80 mg PO QAM RF: 0 phenazopyridine [Pyridium] 200 mg tablet 200 mg PO Q8H PRN (Reason: bladder spasms) Qty: 20 RF: 0 Discharge Orders: Discharge Order (Routine); Ordered 05/29/19 Ordered By: Perlita Farley Admission Data Admit Date/Time: 05/27/19 14:40 Attending Provider: Jenelle Mandujano Admit Provider: Kimberly Rios Primary Care Provider: Javier Shah Other Providers: Kimberly Rios ; Cain Man ; Rj Greene Other Interventions: Discharge Summary Assessment (RN) Last Done: 05/29/19 13:18 DC Date/Time DO NOT enter until pt leaves facility: 05/29/19 14:02 Supervising Physician Co-Signing Physician Notes PA Supervision Note: I personally saw and examined the patient. I verified all nuñez points and agree with JORDY Farley with the following exceptions and/or additions: Pt feeling much better. No F/C/S, no flank pain or abd pain. VSS NAD, AAOx3 RRR no mgr CTAB no wcr Ext trace pitting edema to knees Stable for dc to home on Cipro, close f/u with Urology and PCP
--- NOTE | 2019-06-07 08:23 | Coding Query ---
CODING QUERY To promote full compliance with coding requirements relating to patient care, provider participation is requested in all cases of coding and reimbursement specialist uncertainty. Please assist us with the question(s) below: Dr. Mandujano, Dr. Man stated in his consult, "Patient with urinary tract infection, probable pyelonephritis following lithotripsy and stent placement, with cultures positive for Enterobacter cloacae." Please clarify if: ( x ) The UTI was a complication of, or due to, the lithotripsy and stent placement procedure. ( ) The UTI was NOT a complication of, or due to, the lithotripsy and stent placement procedure. ( ) UTI, unspecified cause. ( ) Unable to determine. ( ) Other (Specify): Physician's Comment: Thank you for your time, and happy holidays! NANCY Jeffries, [facility]
== END 2019-05-29 14:02 | disposition home or self-care (01) | DRG 699 ==
LOC: ED 10:37 → 3N 14:40 → SUATTDRO 14:40 → 3N 16:04

== ENCOUNTER 2022-01-14 09:21 | Inpatient (IN) ==
--- NOTE | 2021-12-21 11:15 | PAT Medication Instructions ---
Medication Instructions Date of Service December 21, 2021 Home Medications Medication Instructions Recorded apixaban 5 mg tablet (Eliquis) 5 mg PO BID #0 tab 05/14/19 aspirin 81 mg tablet,delayed 81 mg PO QAM #0 tab 05/14/19 release (Sandra Low Dose Aspirin) furosemide 40 mg tablet 40 mg PO BID #0 tab 05/29/19 albuterol sulfate 1.25 mg/3 mL solution for nebulization 1.25 mg INHALATION BID PRN albuterol sulfate 90 mcg/actuation breath activated powder inhaler 2 inh INHALATION BID PRN carvedilol 6.25 mg tablet 6.25 mg PO BID diclofenac sodium 1 % topical gel (Voltaren) 2 g TOPICAL QID PRN epinephrine 0.3 mg/0.3 mL injection, auto-injector (EpiPen) 0.3 mg IM Q3H PRN ferrous sulfate 325 mg (65 mg iron) tablet 325 mg PO QDL fluticasone 500 mcg-salmeterol 50 mcg/dose blistr powdr for inhalation (Advair Diskus) 1 inh INHALATION BID PRN insulin lispro 100 unit/mL subcutaneous pen (Humalog KwikPen (U-100) Insulin) 10 unit SUBCUT UD PRN Multivitamin 50 Plus 1 tab PO QDL omeprazole 20 mg tablet,delayed release 20 mg PO QAM paroxetine HCl 20 mg tablet (Paxil) 20 mg PO BID potassium chloride 20 mEq tablet,extended release(part/cryst) (Klor-Con M) 20 meq PO QID pramipexole 1.5 mg tablet (Mirapex) 1.5 mg PO TID terazosin 5 mg capsule 5 mg PO HS trazodone 100 mg tablet 200 mg PO HS apixaban 5 mg tablet (Eliquis) 5 mg PO BID aspirin 81 mg tablet,delayed release (Sandra Low Dose Aspirin) 81 mg PO QAM acetaminophen 500 mg tablet (Tylenol Extra Strength) 500 mg PO Q6H PRN allopurinol 300 mg tablet 300 mg PO QDL metolazone 2.5 mg tablet 5 mg PO QAM furosemide 40 mg tablet 40 mg PO BID Continue as directed epinephrine 0.3 mg/0.3 mL injection, auto-injector (EpiPen) 0.3 mg IM Q3H PRN (if needed) ASK your prescriber and surgeon apixaban 5 mg tablet (Eliquis) 5 mg PO BID aspirin 81 mg tablet,delayed release (Sandra Low Dose Aspirin) 81 mg PO QAM STOP taking 24 hours before surgery diclofenac sodium 1 % topical gel (Voltaren) 2 g TOPICAL QID PRN DO NOT take the morning of surgery ferrous sulfate 325 mg (65 mg iron) tablet 325 mg PO QDL insulin lispro 100 unit/mL subcutaneous pen (Humalog KwikPen (U-100) Insulin) 10 unit SUBCUT UD PRN Multivitamin 50 Plus 1 tab PO QDL potassium chloride 20 mEq tablet,extended release(part/cryst) (Klor-Con M) 20 meq PO QID metolazone 2.5 mg tablet 5 mg PO QAM furosemide 40 mg tablet 40 mg PO BID pramipexole 1.5 mg tablet (Mirapex) 1.5 mg PO TID Take morning of surgery With a small sip of water, OTHERWISE NOTHING TO EAT OR DRINK AFTER MIDNIGHT: albuterol sulfate 1.25 mg/3 mL solution for nebulization 1.25 mg INHALATION BID PRN (if needed) albuterol sulfate 90 mcg/actuation breath activated powder inhaler 2 inh INHALATION BID PRN (use if needed; please bring rescue inhaler with you to hospital day of surgery if possible) carvedilol 6.25 mg tablet 6.25 mg PO BID fluticasone 500 mcg-salmeterol 50 mcg/dose blistr powdr for inhalation (Advair Diskus) 1 inh INHALATION BID PRN (if needed) omeprazole 20 mg tablet,delayed release 20 mg PO QAM paroxetine HCl 20 mg tablet (Paxil) 20 mg PO BID acetaminophen 500 mg tablet (Tylenol Extra Strength) 500 mg PO Q6H PRN (if needed) allopurinol 300 mg tablet 300 mg PO QDL Take evening before surgery albuterol sulfate 1.25 mg/3 mL solution for nebulization 1.25 mg INHALATION BID PRN (if needed) albuterol sulfate 90 mcg/actuation breath activated powder inhaler 2 inh INHALATION BID PRN (if needed) carvedilol 6.25 mg tablet 6.25 mg PO BID fluticasone 500 mcg-salmeterol 50 mcg/dose blistr powdr for inhalation (Advair Diskus) 1 inh INHALATION BID PRN (if needed) insulin lispro 100 unit/mL subcutaneous pen (Humalog KwikPen (U-100) Insulin) 10 unit SUBCUT UD PRN (if needed) paroxetine HCl 20 mg tablet (Paxil) 20 mg PO BID potassium chloride 20 mEq tablet,extended release(part/cryst) (Klor-Con M) 20 meq PO QID pramipexole 1.5 mg tablet (Mirapex) 1.5 mg PO TID terazosin 5 mg capsule 5 mg PO HS trazodone 100 mg tablet 200 mg PO HS acetaminophen 500 mg tablet (Tylenol Extra Strength) 500 mg PO Q6H PRN (if needed) furosemide 40 mg tablet 40 mg PO BID Other Notes If you have any questions please call us at [phone] or [phone] or [phone] or [phone]
--- NOTE | 2021-12-24 13:20 | Anesthesiology Consultation ---
Date of Service December 24, 2021 Assessment & Plan (1) Encounter for pre-operative examination: - Patient acceptable risk for surgery pending surgeon-ordered PCP preop evaluation (Dr. Javier Shah/Lesly; 12/31). - COVID screening: Per assessment on 12/24: No known COVID-19 positive contacts or current COVID-19 related symptoms. Travel screen negative. Patient vaccinated. Surgeon arranging preop COVID testing. Awaiting results. - Cystoscopy, right ureteronephroscopy, laser stone extraction (05/14/19): LMA#5 (igel) at [facility]. No issues per post-op anesthesia progress note. - Check BSG AM DOS - Eliquis instructions per surgeon/prescriber - Cardiology note (12/15/21): "Intermediate cardiac risk" Chart Review Chart Review: Patient seen in Pre Admission Testing Teaching & Discussion Pre-Anesthesia Teaching/Discussion Notes: Instructed NPO after midnight before surgery,except medications with 15 cc of water. Medication instructions provided according to the PAT guidelines. History Surgery Operation Date: 01/14/22 09:05 Proposed Procedures p T11-L2 Decompression and Fusion, L2-S1 Hardware Removal - Jacobo Tejada, Height/Weight Height: 5 ft 11 in Weight: 138.6 kg Allergies Allergy/AdvReac Type Severity Reaction Status Date / Time bee venom protein (honey bee) Allergy Severe Anaphylaxis Verified 12/21/21 08:03 amitriptyline Allergy Intermediate Tachycardia Verified 12/21/21 08:03 budesonide [From Symbicort] Allergy Intermediate Tachycardia Verified 12/21/21 08:03 formoterol [From Symbicort] Allergy Intermediate Tachycardia Verified 12/21/21 08:03 gabapentin [From Neurontin] Allergy Intermediate tachycardia Verified 12/21/21 08:03 c pregabalin [From Lyrica] Allergy Intermediate Tachycardia Verified 12/21/21 08:03 almond Allergy Unknown MOUTH NUMB Verified 12/21/21 08:04 fentanyl Allergy Unknown patch only Verified 12/21/21 08:03 - tachycardia adhesive AdvReac Mild SKIN Verified 12/21/21 08:05 IRRITATION sumac Allergy Severe Anaphylaxis Uncoded 12/21/21 08:03 Medications Home Medications Medication Instructions Recorded Confirmed Last Taken albuterol sulfate 1.25 mg/3 mL 1.25 mg INHALATION BID PRN 04/24/19 12/21/21 05/26/19 solution for nebulization albuterol sulfate 90 mcg/actuation 2 inh INHALATION BID PRN 04/24/19 12/21/21 05/27/19 breath activated powder inhaler carvedilol 6.25 mg tablet 6.25 mg PO BID 04/24/19 12/21/21 05/27/19 diclofenac sodium 1 % topical gel 2 g TOPICAL QID PRN 04/24/19 12/21/21 Unknown (Voltaren) epinephrine 0.3 mg/0.3 mL 0.3 mg IM Q3H PRN 04/24/19 12/21/21 Unknown injection, auto-injector (EpiPen) ferrous sulfate 325 mg (65 mg 325 mg PO QDL 04/24/19 12/21/21 05/26/19 iron) tablet fluticasone 500 mcg-salmeterol 50 1 inh INHALATION BID PRN 04/24/19 12/21/21 05/26/19 mcg/dose blistr powdr for inhalation (Advair Diskus) insulin lispro 100 unit/mL 10 unit SUBCUT UD PRN 04/24/19 12/21/21 05/25/19 12:00 subcutaneous pen (Humalog KwikPen 2 units (U-100) Insulin) [id number] 1 tab PO QDL 04/24/19 12/21/21 05/26/19 tablet (Multivitamin 50 Plus) omeprazole 20 mg tablet,delayed 20 mg PO QAM 04/24/19 12/21/21 05/27/19 release paroxetine HCl 20 mg tablet (Paxil) 20 mg PO BID 04/24/19 12/21/21 05/27/19 potassium chloride 20 mEq 20 meq PO QID 04/24/19 12/21/21 05/27/19 tablet,extended release(part/cryst) (Klor-Con M) pramipexole 1.5 mg tablet (Mirapex) 1.5 mg PO TID 04/24/19 12/21/21 05/27/19 terazosin 5 mg capsule 5 mg PO HS 04/24/19 12/21/21 05/26/19 trazodone 100 mg tablet 200 mg PO HS 04/24/19 12/21/21 05/26/19 apixaban 5 mg tablet (Eliquis) 5 mg PO BID #0 tab 05/14/19 12/21/21 05/27/19 aspirin 81 mg tablet,delayed 81 mg PO QAM #0 tab 05/14/19 12/21/21 05/27/19 release (Sandra Low Dose Aspirin) acetaminophen 500 mg tablet 500 mg PO Q6H PRN 05/27/19 12/21/21 05/27/19 06:30 (Tylenol Extra Strength) 500 mg allopurinol 300 mg tablet 300 mg PO QDL 05/27/19 12/21/21 05/26/19 metolazone 2.5 mg tablet 5 mg PO QAM 05/27/19 12/21/21 05/27/19 furosemide 40 mg tablet 40 mg PO BID #0 tab 05/29/19 12/21/21 05/26/19 Past Medical History Medical History Anxiety Asthma Stable Atrial fibrillation Follows with Dr. Donahue/Lesly Echeverria esophagus Benign essential tremor CAD (coronary artery disease) Mild non-obstructive epicardial coronary artery disease with mild mid LAD intramyocardial bridging per 2018 cardiac cath Cervical vertebral fracture Decreased ROM Degenerative disc disease Diabetes mellitus, type 2 Diet controlled - Humalog only prn (has not used since 2017) Diverticular disease Gall bladder stones GERD (gastroesophageal reflux disease) Controlled H/O retained foreign body fully removed B/L eyes (removal of metal) H/O tongue cancer "Pre-cancerous lesions" History of COVID-19 Dx 07/28/21 > fever, cough, SOB, fatigue, body aches > resolved Horseshoe kidney Hx of pneumothorax ~1981 r/t trauma Hyperlipidemia Hypertension Kidney stones Lung nodules Believed to be calcified asbestos Morbid obesity Myocardial Infarction Possible per remote EKG Neck pain Peptic ulcer disease hx Peripheral neuropathy bilateral legs Pyelonephritis Rheumatoid arthritis Right renal stone Sleep apnea CPAP (compliant) Exercise / Class Metabolic Activity III < 4 Walking/Shop/Light housework (uses cane) Past Family History Family History Father Family history of diabetes mellitus FHx: leukemia Mother Family history of diabetes mellitus Past Surgical History Surgical History Fusion of spine Lumbar History of adenoidectomy History of arthroscopy of both knees History of bronchoscopy History of cardiac cath x2 total 2018 (most recent) [facility] > no stents History of cardiac radiofrequency ablation x3 History of colonoscopy History of cystoscopy Cystoscopy, right ureteronephroscopy, laser stone extraction (05/14/19): LMA#5 (igel) at [facility]. No issues per post-op anesthesia progress note. History of endoscopic sinus surgery History of esophagogastroduodenoscopy (EGD) History of gastric bypass History of laminectomy Lumbar History of tonsillectomy History of total knee replacement R/L Hx of biopsy tongue x3 Past Anesthesia History No Hx of Anesthesia Complications and No Family Hx of Anesthesia Complications History of PONV No Hx of PONV and Hx of Motion Sickness (occasional) Social History Smoking Status: Never smoker Do You Dip or Chew Tobacco: No (Remote hx) Hx Alcohol Use: No Hx Substance Use: No Review of Systems Patient denies chest pain, shortness of breath, fever, chills, cough, wheezing, palpitations. Physical Exam Vital Signs VITALS BP 128/72 P 74 TEMP 98.8 SP02 97%RA RESP 16 PHYSICAL Full cervical extension range of motion. Full TMJ range of motion. TMD 1 finger breaths Mallampati Score 4 Dentition: upper/lower dentures Lungs: clear throughout to auscultation Cardiac: regular rate and rhythm, no murmurs noted Spine: normal Carotid arteries: negative bruit Extremities: no edema Lab Results Anesthesia Preop Results Results Anesthesia Widget: WBC 7.14 K/uL (4.8-10.8) 12/24/21 Hgb 13.7 g/dL (14.0-18.0) L 12/24/21 Hct 38.8 % (42-52) L 12/24/21 Plt 201 K/uL (130-400) 12/24/21 Na 136 mmol/L (136-145) 12/24/21 K 3.3 mmol/L (3.5-5.1) L 12/24/21 Cl 94 mmol/L (98-107) L 12/24/21 CO2 35 mmol/L (21-32) H 12/24/21 BUN 41 mg/dl (6-23) H 12/24/21 Creat 1.42 mg/dl (0.6-1.4) H 12/24/21 Glucose Level 273 mg/dl (70-99(Fasting)) H 12/24/21 PT 10.6 Seconds (9.0-12.0) 12/24/21 PTT 25.4 Seconds (21.0-31.0) 12/24/21 INR 1.0 (0.9-1.1) 12/24/21 HA1c 9.3 % (4.5-5.6) H 12/24/21 Urine Color Yellow 12/24/21 Urine Appearance Clear (Clear) 12/24/21 Urine pH 5.0 (4.5-7.5) 12/24/21 Urine Specific [place] 1.011 (1.000-1.030) 12/24/21 Urine Protein Negative (Negative) 12/24/21 Urine Glucose (UA) Trace (Negative) H 12/24/21 Urine Ketones Negative (Negative) 12/24/21 Urine Blood Negative (Negative) 12/24/21 Urine Nitrite Negative (Negative) 12/24/21 Urine Bilirubin Negative (Negative) 12/24/21 Urine Urobilinogen Negative (Negative) 12/24/21 Urine Leukocyte Esterase Negative (Negative) 12/24/21 Blood Type A Positive 12/24/21 Antibody Screen NEGATIVE 12/24/21 Testing Laboratory Results Surgeon's office made aware of elevated hgba1c* Electrocardiogram Date: 03/17/21 Sinus rhythm with first-degree AV block at 74 bpm. Pulmonary disease pattern. LAFB. Chest X-Ray Date: 03/17/21 FINDINGS: Cardiomediastinal and hilar silhouettes are within normal limits. No pneumothorax, pleural effusion, airspace consolidation or overt pulmonary edema. Degenerative changes of the shoulders and spine. Mid thoracic dextroscoliosis. IMPRESSION: No acute process. Echocardiogram Date: 10/29/19 EF 55-60%. No regional motion abnormality. Mild LVH. No significant valvular disease. Normal PAP. Diastolic function indeterminate due to arrhythmia. Stress Test Date: 09/18/19 Type: nuclear (Lexiscan) Based upon EKG criteria, this test is negative. Based upon nuclear imaging findings there is no evidence of myocardial ischemia or infarction. EF 58%.
[~2022-01-14 09:21] MED LIST: ACETAMINOPHEN 500 MG TAB PO SCH; CeleBREX 200 MG CAP PO SCH; LR 15ML/HR IV SCH
[2022-01-14] MEDS ORDERED: VASOPRESSIN 20 UNIT/ML VIAL ONE (10:22)
[2022-01-14] MEDS ORDERED: fentaNYL citrate 100 MCG/2 ML VIAL ONE ×2 (10:23→12:36)
[2022-01-14] MEDS ORDERED: MIDAZOLAM HCL 1 MG/ML 2ML VIAL ONE (10:23)
[2022-01-14] MEDS ORDERED: LIDOCAINE 2% MPF LOCAL 5 ML VIAL INFIL ONE (11:25)
[2022-01-14] MEDS ORDERED: PROPOFOL IV EMULSION 10 MG/ML 20 ML VIAL IV ONE (11:25)
[2022-01-14] MEDS ORDERED: ONDANSETRON INJ 2 MG/ML 2 ML VIAL ONE (11:25)
[2022-01-14] MEDS ORDERED: ROCURONIUM BROMIDE 10 MG/ML 5 ML VIAL IV ONE ×6 (11:25→15:15)
--- NOTE | 2022-01-14 11:34 | History & Physical Bridge Note ---
Date of Service January 14, 2022 History & Physical Bridge Note I have examined the patient, reviewed the History & Physical and in the interval since the performance of the History & Physical I have noted the following changes of clinical significance: no changes noted
--- NOTE | 2022-01-14 11:36 | History & Physical Report ---
Date of Service January 14, 2022 Assessment & Plan (1) Neurogenic claudication due to lumbar spinal stenosis: Plan: T11-L2 decompression and fusion, L2-S1 hardware removal History of Present Illness Chief Complaint: Back and leg pain Primary Care Provider: Javier Shah This is a 61-year-old male who presents with worsening back and leg symptoms after failing course of nonoperative care is here for surgical invention. Allergies Allergy/AdvReac Type Severity Reaction Status Date / Time bee venom protein (honey bee) Allergy Severe Anaphylaxis Verified 01/14/22 09:53 amitriptyline Allergy Intermediate Tachycardia Verified 01/14/22 09:53 budesonide [From Symbicort] Allergy Intermediate Tachycardia Verified 01/14/22 09:53 formoterol [From Symbicort] Allergy Intermediate Tachycardia Verified 01/14/22 09:53 gabapentin [From Neurontin] Allergy Intermediate tachycardia Verified 01/14/22 09:53 c pregabalin [From Lyrica] Allergy Intermediate Tachycardia Verified 01/14/22 09:53 almond Allergy Unknown MOUTH NUMB Verified 01/14/22 09:53 fentanyl Allergy Unknown patch only Verified 01/14/22 09:53 - tachycardia adhesive AdvReac Mild SKIN Verified 01/14/22 09:53 IRRITATION sumac Allergy Severe Anaphylaxis Uncoded 01/14/22 09:53 Home Medications Medication Instructions Recorded Confirmed Type albuterol sulfate 1.25 mg/3 mL 1.25 mg inhalation BID PRN ASTHMA 04/24/19 01/14/22 History solution for nebulization albuterol sulfate 90 mcg/actuation 2 inh inhalation BID PRN ASTHMA 04/24/19 01/14/22 History breath activated powder inhaler carvedilol 6.25 mg tablet 12.5 mg PO BID 04/24/19 01/14/22 History diclofenac sodium 1 % topical gel 2 g topical QID PRN Pain 04/24/19 01/14/22 History (Voltaren) epinephrine 0.3 mg/0.3 mL 0.3 mg IM Q3H PRN Allergic Reaction 04/24/19 01/14/22 History injection, auto-injector (EpiPen) ferrous sulfate 325 mg (65 mg 325 mg PO QDL 04/24/19 01/14/22 History iron) tablet fluticasone 500 mcg-salmeterol 50 1 inh inhalation BID PRN Shortness 04/24/19 01/14/22 History mcg/dose blistr powdr for Of Breath Or Wheezing inhalation (Advair Diskus) insulin lispro 100 unit/mL 10 unit subcut UD PRN Hyperglycemia 04/24/19 01/14/22 History subcutaneous pen (Humalog KwikPen (U-100) Insulin) [id number] 1 tab PO QDL 04/24/19 01/14/22 History tablet (Multivitamin 50 Plus) omeprazole 20 mg tablet,delayed 20 mg PO QAM 04/24/19 01/14/22 History release paroxetine HCl 20 mg tablet (Paxil) 20 mg PO BID 04/24/19 01/14/22 History potassium chloride 20 mEq 20 meq PO QID 04/24/19 01/14/22 History tablet,extended release(part/cryst) (Klor-Con M) pramipexole 1.5 mg tablet (Mirapex) 1.5 mg PO TID 04/24/19 01/14/22 History terazosin 5 mg capsule 5 mg PO HS 04/24/19 01/14/22 History trazodone 100 mg tablet 200 mg PO HS 04/24/19 01/14/22 History apixaban 5 mg tablet (Eliquis) 5 mg PO BID #0 tabs 05/14/19 01/14/22 Rx aspirin 81 mg tablet,delayed 81 mg PO QAM #0 tabs 05/14/19 01/14/22 Rx release (Sandra Low Dose Aspirin) acetaminophen 500 mg tablet 500 mg PO Q6H PRN Pain 05/27/19 01/14/22 History (Tylenol Extra Strength) allopurinol 300 mg tablet 300 mg PO QDL 05/27/19 01/14/22 History metolazone 2.5 mg tablet 5 mg PO QAM 05/27/19 01/14/22 History furosemide 40 mg tablet 40 mg PO BID #0 tabs 05/29/19 01/14/22 Rx Past Med/Surg History Medical History Anxiety Asthma Stable Atrial fibrillation Follows with Dr. Donahue/Lesly Echeverria esophagus Benign essential tremor CAD (coronary artery disease) Mild non-obstructive epicardial coronary artery disease with mild mid LAD intramyocardial bridging per 2018 cardiac cath Cervical vertebral fracture Decreased ROM Degenerative disc disease Diabetes mellitus, type 2 Diet controlled - Humalog only prn (has not used since 2017) Diverticular disease Gall bladder stones GERD (gastroesophageal reflux disease) Controlled H/O retained foreign body fully removed B/L eyes (removal of metal) H/O tongue cancer "Pre-cancerous lesions" History of COVID-19 Dx 07/28/21 > fever, cough, SOB, fatigue, body aches > resolved Horseshoe kidney Hx of pneumothorax ~1981 r/t trauma Hyperlipidemia Hypertension Kidney stones Lung nodules Believed to be calcified asbestos Morbid obesity Myocardial Infarction Possible per remote EKG Neck pain Peptic ulcer disease hx Peripheral neuropathy bilateral legs Pyelonephritis Rheumatoid arthritis Right renal stone Sleep apnea CPAP (compliant) Surgical History Fusion of spine Lumbar History of adenoidectomy History of arthroscopy of both knees History of bronchoscopy History of cardiac cath x2 total 2017 (most recent) [facility] > no stents History of cardiac radiofrequency ablation x3 History of colonoscopy History of cystoscopy Cystoscopy, right ureteronephroscopy, laser stone extraction (05/14/19): LMA#5 (igel) at [facility]. No issues per post-op anesthesia progress note. History of endoscopic sinus surgery History of esophagogastroduodenoscopy (EGD) History of gastric bypass History of laminectomy Lumbar History of tonsillectomy History of total knee replacement R/L Hx of biopsy tongue x3 Family History Father Family history of diabetes mellitus FHx: leukemia Mother Family history of diabetes mellitus Social History Smoking Status: Never smoker Second Hand Exposure: No; Do You Dip or Chew Tobacco: No (Remote hx); Hx Alcohol Use: No Hx Substance Use: No Preferred Language: Georgian Communication Ability: Effective Third Cook Required: No Beliefs That Will Affect Care: None marital status: Current Living Situation: Spouse current occupational status: disabled Other Information That Helps Us Care for You: No Feels Safe at Home: Yes Safety Concerns: Feels Safe At This Time Assistive Devices: Brace/Splint/Immobilizer, Cane, Denture - Upper, Denture - Lower, Glasses and Walker Assistive Devices Comment: CANE/WALKER PRN Physical Exam Physical Exam: Patient is alert and oriented Heart regular in rhythm Lungs clear Results & Data Results & Data ([facility]) Vital Signs (Past 12 Hours) Vital Signs Temp Pulse Resp BP Pulse Ox O2 Del Method 01/14/22 10:01 37.1 C 91 H 20 131/92 97 Room Air
[2022-01-14] MEDS ORDERED: ONDANSETRON INJ 2 MG/ML 2 ML VIAL IV PRN ×2 (11:58→16:40)
[2022-01-14] MEDS ORDERED: ATROPINE SULFATE 0.1 MG/ML 10ML SYR IV PRN (11:58)
[2022-01-14] MEDS ORDERED: fentaNYL citrate 100 MCG/2 ML VIAL IV PRN (11:58)
[2022-01-14] MEDS ORDERED: ePHEDrine sulfate 50 MG/ML AMP IV PRN (11:58)
[2022-01-14] MEDS ORDERED: BUPIVACAINE/EPINEPHRINE 0.25% 1:200,000 30 ML VIAL ONE (12:19)
[2022-01-14] MEDS ORDERED: ceFAZolin 330 MG/ML 1 GM VIAL ONE (12:19)
[2022-01-14] MEDS ORDERED: DEXAMETHASONE SOD INJ 4 MG/ML VIAL ONE (12:50)
[2022-01-14] MEDS ORDERED: GLYCOPYRROLATE 0.2 MG/ML VIAL ONE (13:14)
[2022-01-14] MEDS ORDERED: NEOSTIGMINE METHYLSULFATE 1 MG/ML 10ML VIAL ONE (13:14)
[2022-01-14] MEDS ORDERED: FLOSEAL HEMOSTATIC MATRIX 10ML TOP ONE (13:18)
[2022-01-14] MEDS ORDERED: HYDROmorphone INJ 2 MG/ML SYR/VIAL ONE (14:56)
--- NOTE | 2022-01-14 15:10 | Operative Report ---
Post Operative Report Pre & Post Diagnosis Operation Date: 01/14/22 10:55 Pre-Op Diagnosis: Neurogenic claudication due to lumbar spinal stenosis Post-Op Diagnosis: Neurogenic claudication due to lumbar spinal stenosis I identified the patient and participated in the time-out.: Yes Procedure Operation Date: 01/14/22 10:55 Actual Procedures #1 lumbar decompression with bilateral medial facetectomies and foraminotomies T12-L1 L1-L2. #2 posterior spinal fusion T11-L3. #3 placement of posterior instrumentation T11-L1 with connectors to L2 and L3 rods. #4 interbody fusion L1-L2. #5 placement of Spira 10 x 26 mm cage at L1-L2. #6 placement locally harvested morselized autograft in the posterior gutters. #7 placement infuse collagen sponge, master graft in the posterior gutters and I factor in the interbody space. Surgeon Jacobo Tejada, DO [employer] Supervisor Arie Baez Estimated Blood Loss 700 Findings See Below The patient is 6 foot tall weighing over 135 kg with a BMI in excess of 40. This combined with an EBL greater than 700 cc. Is significant technical difficulty. This had at least 50% increased operative time. Specimens None Indications This is a 61-year-old male who presents with above-mentioned diagnosis after failed course of nonoperative care is here for surgical invention. Description of Procedure Patient met with identified informed consent obtained. Patient was then taken to the operative suite underwent a patient placed in a prone position the [facility] top Patrick frame. All bony prominences well-padded eyes inspected to ensure no external pressure placed upon the. This point the thoracolumbar spine was prepped and draped no sterile fashion. Sharp dissection with the assistance of Bovie cautery was performed down to and exposing the lamina and transverse processes of T11-T12 L1-L2-L3 bilaterally. I then performed a midline decompression including bilateral medial facet ectomy's and foraminotomies of L1 and partial laminectomy of T12. Pedicle screws were placed in T11-T12 and L1 bilaterally with assistance of fluoroscopy. Connectors were also attached to the manpreet at the L2-3 and [address] of transfer approach and left complete discectomy of L1-L2 was performed endplates curetted to subcortical bleeding bone and 810 x 26 mm spiral cage with I factor tapped in position. Proper size rods were then placed locked into position bilaterally. The transverse processes of L3 L2 L1 T12 and T11 were burred to subcortically bone. Infuse collagen sponge mass graft local autograft was placed in posterior gutters. 15 round RAMBO drain inserted. The incision was then closed with 1 Vicryl the fascia 2-0 Vicryl subcutaneously and 4 Monocryl for final skin closure. Steri-Strip sterile dressings placed. Patient waken taken to PACU stable condition. Please note spinal cord monitoring was utilized at the procedure no changes noted. Lastly Arie Baez was present out the entire surgery and while the patient positioning complex portions of the surgery and final skin closure. I attest to the content of the Intraoperative Record and any orders documented therein. Any exceptions are noted below.
[2022-01-14] MEDS ORDERED: hydrOXYzine HCl 25 MG TAB PO PRN (16:40)
[2022-01-14] MEDS ORDERED: ALUMINUM/MAGNESIUM SUSP 30 ML UDC PO PRN (16:40)
[2022-01-14] MEDS ORDERED: MAGNESIUM HYDROXIDE SUSP 30 ML UDC PO PRN (16:40)
[2022-01-14] MEDS ORDERED: HYDROmorphone INJ 1 MG/ML SYRINGE IV PRN (16:40)
[2022-01-14] MEDS ORDERED: diphenhydrAMINE Capsule 25 MG CAP PO PRN (16:40)
[2022-01-14] MEDS ORDERED: LORazepam 0.5 MG TAB PO PRN (16:40)
[2022-01-14] MEDS ORDERED: ONDANSETRON 4 MG OD TAB PO PRN (16:40)
[2022-01-14] MEDS ORDERED: PROMETHAZINE HCL 12.5 MG in SODIUM CHLORIDE 0.9% 50 ML IV PRN (16:40)
[2022-01-14] MEDS ORDERED: HYDROmorphone INJ 0.5 MG/0.5 ML SYR IV PRN (16:40)
[2022-01-14] MEDS ORDERED: METOCLOPRAMIDE HCL INJ 5 MG/ML 2 ML VIAL IV PRN (16:40)
[2022-01-14] MEDS ORDERED: EPINEPHrine ADULT AUTO-INJECT 0.3 MG SYR IM PRN (16:40)
[2022-01-14] MEDS ORDERED: traMADol HCL 50 MG TABLET PO PRN (16:40)
[2022-01-14] MEDS ORDERED: NALOXONE HCL 0.4 MG/1 ML VIAL/CARP IV PRN (16:40)
[2022-01-14] MEDS ORDERED: FAMOTIDINE 20 MG TAB PO PRN (16:40)
[2022-01-14] MEDS ORDERED: SOD PHOSPHATE/SOD BIPHOSPHATE ENEMA 132 ML BTL PR PRN (16:40)
[2022-01-14] MEDS ORDERED: LORazepam 0.5 MG in SYRINGE 0.25 ML IV PRN (16:40)
[2022-01-14] MEDS ORDERED: bisacodyL 10 MG SUPP PR PRN (16:40)
[2022-01-14] MEDS ORDERED: ACETAMINOPHEN 1,000 MG/100 ML VIAL IV PRN (16:40)
--- NOTE | 2022-01-14 16:40 | Anesthesiology Progress Note ---
Date of Service January 14, 2022 Anesthesia Post Procedure Vital Signs Vital Signs: Temp Pulse Pulse Resp BP Pulse Ox O2 Del Method 01/14/22 16:25 74 18 117/68 95 Room Air 01/14/22 16:15 36.2 C L 73 18 123/81 98 Room Air 01/14/22 16:05 71 14 118/70 98 Room Air 01/14/22 15:55 71 12 121/80 100 Oxymask 01/14/22 15:45 36.2 C L 74 12 129/105 H 99 Oxymask 01/14/22 10:01 37.1 C 91 H 20 131/92 97 Room Air O2 Flow Rate 01/14/22 16:25 01/14/22 16:15 01/14/22 16:05 01/14/22 15:55 10 01/14/22 15:45 10 01/14/22 10:01 Pain Intensity Medial Back: Pain Intensity: 3 Transfer of Care Handoff Completed per policy Notes Mental Status: alert / awake / arousable and participated in evaluation Patient Amnestic to Procedure: Yes Nausea / Vomiting: adequately controlled Pain: adequately controlled Airway Patency, RR, SpO2: stable & adequate BP & HR: stable & adequate Hydration State: stable & adequate Anesthetic Complications: no major complications apparent and Pt Satisfied with anesthetic care
--- NOTE | 2022-01-14 17:03 | Fluoroscopy Report ---
FL lumbar spine 2-3V CLINICAL HISTORY: T11-L2 DECOMPRESSION COMPARISON STUDY: Lumbar spine 11/01/2021. FLUOROSCOPY TIME: 36 seconds. FINDINGS: 4 fluoroscopic spot image of the lumbar spine were submitted. There is extensive posterior decompression and fusion within the thoracolumbar spine. The exact levels are difficult to identify o n this spot image. The hardware appears intact. IMPRESSION: Fluoroscopic assistance for thoracolumbar spinal fusion. ACT 112: Negative or not required by law. Electronically signed by: Bandar Mccray M.D. 01/14/2022 5:02 PM
[2022-01-14] MEDS: LACTATED RINGER'S 1,000 ML IV SCH ×2 (17:05→23:29)
[2022-01-14] MEDS ORDERED: ALBUTEROL 0.083% NEBU SOLN 3 ML VIAL INH PRN ×2 (17:10→19:48)
[2022-01-14] MEDS: ACETAMINOPHEN 500 MG TAB PO PRN (17:10)
[2022-01-14] MEDS: POTASSIUM CHLORIDE CRTAB 20 MEQ TABCR PO SCH ×2 (17:10→20:12)
[2022-01-14] MEDS ORDERED: ALBUTEROL HFA 8 GM INHALER INH PRN (17:13)
[2022-01-14] MEDS ORDERED: FLUTICASONE/VILANTEROL 100/25MCG 14 PUFFS/INHALER INH PRN (17:14)
[2022-01-14] MEDS ORDERED: FUROSEMIDE 40 MG TAB PO SCH (17:30)
[2022-01-14] MEDS ORDERED: PHARMACY GLYCEMIC MGMT CONSULT PRN (17:39)
[2022-01-14] MEDS ORDERED: INSULIN HUMAN REGULAR PER UNIT 10 UNITS in SYRINGE 9.9 ML IV SCH (18:00)
[2022-01-14] MEDS ORDERED: LANTUS PER UNIT CHARGE SQ ONE (18:00)
[2022-01-14] MEDS: INSULIN ASPART PER UNIT SC SCH ×3 (18:18→23:37)
--- NOTE | 2022-01-14 19:46 | Consultation ---
Date of Consultation January 14, 2022 Assessment & Plan (1) Status post lumbar surgery: (2) Neurogenic claudication due to lumbar spinal stenosis: Post op day# 0 S/P T11-L3 decompression and fusion by Dr Mallory MELENDEZ number 700 mL -pain management per ortho -wound management per ortho -PT/OT as appropriate -DVT prophylaxis per ortho -incentive spirometry -monitor H&H for acute blood loss anemia; Hgb: 13.7 preop (3) Atrial fibrillation: Chronic atrial fibrillation anticoagulated on Eliquis Current rate controlled Eliquis is on hold per Ortho spine Continue carvedilol (4) CAD (coronary artery disease): Nonobstructive CAD on cath in 2018 Continue carvedilol (5) Diabetes mellitus, type 2: A1c: 9.3 on 12/2021 Hold home oral meds Basal bolus insulin per protocol. Glycemic pharmacist on board, appreciate management (6) Chronic CHF: Currently appears euvolemic Hold Lasix and metolazone and reassess tomorrow (7) Asthma: No acute exacerbation Continue home inhalers Albuterol neb as needed (8) Hypertension: Continue carvedilol (9) Sleep apnea: CPAP with 2 L oxygen at bedtime (10) GERD (gastroesophageal reflux disease): Guy's esophagus Continue PPI (11) Anxiety: Continue paroxetine (12) Renal insufficiency: CKD II Preop creatinine 1.4. Baseline~1.3 Monitor renal functions, avoid nephrotoxic agents when possible DVT Prophylaxis SCDs Disposition per primary service Follows with Dr Javier Shah in [place], [place] for routine care Pt was seen and care coordinated with Dr Mckeon. See addendum Thank you for this consultation. We will follow the patient with you during their hospital stay. You can reach a member of the [facility]/01 via [employer] Supervising Physician Co-Signing Physician Notes Attending addendum: The patient was seen and examined in medical floor He is a status post lumbar back surgery Complains to have minimal back pain with tingling involving the left lower extremity but denies any other significant symptoms On examination Sitting at the edge of the bed without any acute distress Hemodynamically stable Chestclear to auscultate bilaterally HeartS1-S2, regular and no murmur appreciated Abdomen-benign Extremities-trace edema bilaterally His preoperative labs, EKG and imaging studies reviewed Status post lumbar back surgery His other significant medical condition remained stable Will monitor CBC and electrolytes Agree with assessment and plan as outlined above by NANCY Solis DR History of Present Illness Requesting Physician: Dr. Tejada Reason for Consultation: Postop medical management Attending Physician: Jacobo Tejada, History of Present Illness Patient is 61-year-old male with PMH HTN, CAD, atrial fibrillation anticoagulated on Eliquis, DM II, chronic CHF, asthma, Guy's esophagus, GERD, anxiety, sleep apnea seen in medical consultation s/p decompression and fusion T11-L3 today by Dr. Tejada. Postop patient reports doing well pain is moderately controlled. Denies extremity pain. Reports chronic left foot drop at baseline. Denies nausea, vomiting, CP, SOB. Last BM this morning. Not urinated yet since procedure. Denies fever/chills, diaphoresis, N/V/D/C, NEW, dizziness, syncope, vision changes, neck pain, CP, SOB, orthopnea, palpitations, cough, sore throat, choking, otalgia, rhinorrhea, abdominal pain, paresthesias, weakness, increased extremity edema, rashes, dysuria, hematuria. Allergies Allergy/AdvReac Type Severity Reaction Status Date / Time bee venom protein (honey bee) Allergy Severe Anaphylaxis Verified 01/14/22 09:53 amitriptyline Allergy Intermediate Tachycardia Verified 01/14/22 09:53 budesonide [From Symbicort] Allergy Intermediate Tachycardia Verified 01/14/22 09:53 formoterol [From Symbicort] Allergy Intermediate Tachycardia Verified 01/14/22 09:53 gabapentin [From Neurontin] Allergy Intermediate tachycardia Verified 01/14/22 09:53 c pregabalin [From Lyrica] Allergy Intermediate Tachycardia Verified 01/14/22 09:53 almond Allergy Unknown MOUTH NUMB Verified 01/14/22 09:53 fentanyl Allergy Unknown patch only Verified 01/14/22 09:53 - tachycardia adhesive AdvReac Mild SKIN Verified 01/14/22 09:53 IRRITATION sumac Allergy Severe Anaphylaxis Uncoded 01/14/22 09:53 Home Medications Medication Instructions Recorded Confirmed Type albuterol sulfate 1.25 mg/3 mL 1.25 mg inhalation BID PRN ASTHMA 04/24/19 07/2 08/17 History solution for nebulization albuterol sulfate 90 mcg/actuation 2 inh inhalation BID PRN ASTHMA 04/24/19 01/14/22 History breath activated powder inhaler carvedilol 6.25 mg tablet 12.5 mg PO BID 04/24/19 01/14/22 History diclofenac sodium 1 % topical gel 2 g topical QID PRN Pain 04/24/19 01/14/22 History (Voltaren) epinephrine 0.3 mg/0.3 mL 0.3 mg IM Q3H PRN Allergic Reaction 04/24/19 01/14/22 History injection, auto-injector (EpiPen) ferrous sulfate 325 mg (65 mg 325 mg PO QDL 04/24/19 01/14/22 History iron) tablet fluticasone 500 mcg-salmeterol 50 1 inh inhalation BID PRN Shortness 04/24/19 01/14/22 History mcg/dose blistr powdr for Of Breath Or Wheezing inhalation (Advair Diskus) insulin lispro 100 unit/mL 10 unit subcut UD PRN Hyperglycemia 04/24/19 01/14/22 History subcutaneous pen (Humalog KwikPen (U-100) Insulin) [id number] 1 tab PO QDL 04/24/19 01/14/22 History tablet (Multivitamin 50 Plus) omeprazole 20 mg tablet,delayed 20 mg PO QAM 04/24/19 01/14/22 History release paroxetine HCl 20 mg tablet (Paxil) 20 mg PO BID 04/24/19 01/14/22 History potassium chloride 20 mEq 20 meq PO QID 04/24/19 01/14/22 History tablet,extended release(part/cryst) (Klor-Con M) pramipexole 1.5 mg tablet (Mirapex) 1.5 mg PO TID 04/24/19 01/14/22 History terazosin 5 mg capsule 5 mg PO HS 04/24/19 01/14/22 History trazodone 100 mg tablet 200 mg PO HS 04/24/19 01/14/22 History apixaban 5 mg tablet (Eliquis) 5 mg PO BID #0 tabs 05/14/19 01/14/22 Rx aspirin 81 mg tablet,delayed 81 mg PO QAM #0 tabs 05/14/19 01/14/22 Rx release (Sandra Low Dose Aspirin) acetaminophen 500 mg tablet 500 mg PO Q6H PRN Pain 12/02/19 07/22/22 History (Tylenol Extra Strength) allopurinol 300 mg tablet 300 mg PO QDL 05/27/19 01/14/22 History metolazone 2.5 mg tablet 5 mg PO QAM 05/27/19 01/14/22 History furosemide 40 mg tablet 40 mg PO BID #0 tabs 05/29/19 01/14/22 Rx Patient History Medical History (Updated 01/14/22 @ 19:57 by Anne Cornelius PA-C) Anxiety Asthma Stable Atrial fibrillation Follows with Dr. Donahue/[place] Barrett esophagus Benign essential tremor CAD (coronary artery disease) Mild non-obstructive epicardial coronary artery disease with mild mid LAD intramyocardial bridging per 2018 cardiac cath Cervical vertebral fracture Decreased ROM Chronic CHF Degenerative disc disease Diabetes mellitus, type 2 Diet controlled - Humalog only prn (has not used since 2017) Diverticular disease Gall bladder stones GERD (gastroesophageal reflux disease) Controlled H/O retained foreign body fully removed B/L eyes (removal of metal) H/O tongue cancer "Pre-cancerous lesions" History of COVID-19 Dx 07/28/21 > fever, cough, SOB, fatigue, body aches > resolved Horseshoe kidney Hx of pneumothorax ~1981 r/t trauma Hyperlipidemia Hypertension Kidney stones Lung nodules Believed to be calcified asbestos Morbid obesity Myocardial Infarction Possible per remote EKG Neck pain Peptic ulcer disease hx Peripheral neuropathy bilateral legs Pyelonephritis Rheumatoid arthritis Right renal stone Sleep apnea CPAP (compliant) Surgical History (Updated 01/14/22 @ 19:53 by Anne Cornelius PA-C) Fusion of spine Lumbar History of adenoidectomy History of arthroscopy of both knees History of bronchoscopy History of cardiac cath x2 total 2018 (most recent) [facility] > no stents History of cardiac radiofrequency ablation x3 History of colonoscopy History of cystoscopy Cystoscopy, right ureteronephroscopy, laser stone extraction (05/14/19): LMA#5 (igel) at [facility]. No issues per post-op anesthesia progress note. History of endoscopic sinus surgery History of esophagogastroduodenoscopy (EGD) History of gastric bypass History of laminectomy Lumbar History of tonsillectomy History of total knee replacement R/L Hx of biopsy tongue x3 Family History Father Family history of diabetes mellitus FHx: leukemia Mother Family history of diabetes mellitus Social History Smoking Status: Never smoker Second Hand Exposure: No; Do You Dip or Chew Tobacco: No (Remote hx); Hx Alcohol Use: No Hx Substance Use: No Preferred Language: [place]er Communication Ability: Effective Crayon Sawyer Required: No Beliefs That Will Affect Care: None marital status: Current Living Situation: Spouse current occupational status: disabled Other Information That Helps Us Care for You: No Feels Safe at Home: Yes Safety Concerns: Feels Safe At This Time Assistive Devices: Brace/Splint/Immobilizer, Cane, Denture - Upper, Denture - Lower, Glasses and Walker Assistive Devices Comment: CANE/WALKER PRN Review of Systems Review of Systems: All systems reviewed & are unremarkable except as noted in HPI & below Physical Exam Physical Exam: General: no distress, obese Head: normocephalic, atraumatic Eyes: conjunctiva non-injected, anicteric ENT: normal inspection external ears, nose, mucous membranes moist Neck: supple, trachea midline Lungs: clear, no respiratory distress, no wheezing/rhonchi/rales CV: Irregularly irregular, rate 76, no murmur, trace pretibial edema Abd: protuberant, normal BS, soft, non-tender Ext: no cyanosis, no calf tenderness Neuro: A&O x 3, no focal deficits noted, normal affect Skin: warm, dry Results & Data ([facility]) Vital Signs (Past 12 Hours) Vital Signs Temp Pulse Pulse Resp BP Pulse Ox O2 Del Method 01/14/22 19:30 36.5 C 76 18 110/71 98 Room Air 01/14/22 18:30 36.5 C 89 18 130/86 98 Room Air 01/14/22 17:30 36.8 C 76 18 116/76 97 Room Air 01/14/22 17:00 36.9 C 74 16 139/96 97 Room Air 01/14/22 16:30 37 C 76 16 109/75 98 Room Air 01/14/22 16:25 74 18 117/68 95 Room Air 01/14/22 16:15 36.2 C L 73 18 123/81 98 Room Air 01/14/22 16:05 71 14 118/70 98 Room Air 01/14/22 15:55 71 12 121/80 100 Oxymask 01/14/22 15:45 36.2 C L 74 12 129/105 H 99 Oxymask 01/14/22 10:01 37.1 C 91 H 20 131/92 97 Room Air O2 Flow Rate 01/14/22 19:30 01/14/22 18:30 01/14/22 17:30 01/14/22 17:00 01/14/22 16:30 01/14/22 16:25 01/14/22 16:15 01/14/22 16:05 01/14/22 15:55 10 01/14/22 15:45 10 01/14/22 10:01
[2022-01-14] MEDS: DOCUSATE SODIUM/SENNA 50/8.6MG TAB PO SCH (20:12)
[2022-01-14] MEDS: TERAZOSIN HCL 5 MG CAP PO SCH (20:12)
[2022-01-14] MEDS: carvediloL 12.5 MG TAB PO SCH (20:12)
[2022-01-14] MEDS: PRAMIPEXOLE DIHYDROCHLO 0.5 MG TAB PO SCH (20:13)
[2022-01-14] MEDS: PARoxetine HCL 20 MG TAB PO SCH (20:13)
[2022-01-14] MEDS: ceFAZolin 2000MG 2,000 MG/15 ML SYR IV SCH (21:38)
[2022-01-14] MEDS: traZODone HCL 100 MG TAB PO SCH (21:41)
[2022-01-14] MEDS: oxyCODONE HCL IR 5 MG TAB (IMMEDIATE RELEASE) PO PRN (21:43)
[2022-01-15] MEDS: oxyCODONE HCL IR 5 MG TAB (IMMEDIATE RELEASE) PO PRN ×2 (03:30→21:23)
[2022-01-15] MEDS: INSULIN ASPART PER UNIT SC SCH ×6 (03:38→23:41)
[2022-01-15] MEDS: ceFAZolin 2000MG 2,000 MG/15 ML SYR IV SCH (05:46)
[2022-01-15] MEDS: POLYETHYLENE (MIRALAX) 17 GM PACK PO SCH ×4 (05:52→23:42)
[2022-01-15] MEDS: LACTATED RINGER'S 1,000 ML IV SCH (05:57)
[2022-01-15 06:28] LABS: Basophils # (auto) 0.02 K/uL (0-0.2); Basophils % (auto) 0.1 %; Hematocrit (blood only) 30.3 % (40.1-51.0); Hemoglobin 10.5 g/dl (14.0-18.0); Immature Granulocytes # (auto) 0.08 K/uL (0.00-0.02); Immature Granulocytes % (auto) 0.6 %; Lymphocytes % (auto) 5.1 %; Mean Corpuscular Hemoglobin 32.3 pg (25.0-34.0); Mean Corpuscular Hgb Conc 34.7 g/dL (32.0-36.0); Mean Corpuscular Volume 93.2 fL (80.0-100.0); Mean Platelet Volume 9.3 fL (9.4-12.4); Monocytes # (auto) 0.99 K/uL (0.24-0.82); Monocytes % (auto) 7.2 %; Neutrophils # (auto) 12.05 K/uL (1.4-6.5); Platelet Count 185 K/uL (130-400); RDW Coefficient of Variation 12.8 % (11.5-14.5); RDW Standard Deviation 43.8 fL (36.4-46.3); Red Blood Count 3.25 M/uL (4.63-6.08); White Blood Count 13.84 K/ul (4.8-10.8)
[2022-01-15 06:53] LABS: BUN Creatinine Ratio 25.4 (10-20); Calcium 8.7 mg/dl (8.5-10.1); Creatinine Clr Calc Pharmacy 58.9 ml/min; Est GFR (African American) 44.2 ml/min; Est GFR (Non-African American) 38.2 ml/min; Potassium 3.7 mmol/L (3.5-5.1)
[2022-01-15] MEDS: PANTOprazole 40 MG TAB PO SCH (08:05)
[2022-01-15] MEDS: carvediloL 12.5 MG TAB PO SCH ×2 (08:05→21:24)
[2022-01-15] MEDS: PARoxetine HCL 20 MG TAB PO SCH ×2 (08:05→21:24)
[2022-01-15] MEDS: ASPIRIN 81 MG ECTAB PO SCH (08:05)
[2022-01-15] MEDS: PRAMIPEXOLE DIHYDROCHLO 0.5 MG TAB PO SCH ×3 (08:06→21:24)
[2022-01-15] MEDS: POTASSIUM CHLORIDE CRTAB 20 MEQ TABCR PO SCH ×4 (08:07→21:44)
[2022-01-15] MEDS ORDERED: metOLazone 5 MG TABLET PO SCH (09:00)
[2022-01-15] MEDS: LANTUS PER UNIT CHARGE SQ SCH ×2 (09:41→21:29)
[2022-01-15] MEDS: dexAMETHasone 6 MG in SYRINGE 0 ML IV SCH (09:42)
--- NOTE | 2022-01-15 10:35 | Orthopedic Progress Note ---
Date of Service January 15, 2022 Assessment & Plan (1) Neurogenic claudication due to lumbar spinal stenosis: Plan: Patient is status post thoracolumbar decompression fusion. Plan at this time we will continue with physical therapy monitor his RAMBO output hopefully discharge home next few days. Admission and Anticipated Discharge Date Admission Date: January 14, 2022 Subjective Patient's back pain is controlled leg symptoms markedly improved Physical Exam Physical Exam: She is seen at the bedside. Is good strength testing. Appears comfortable. Results & Data ([facility]) Vital Signs (Past 12 Hours) Vital Signs Temp Pulse Resp BP Pulse Ox O2 Del Method 01/15/22 07:38 36.8 C 68 16 96/63 L 93 Room Air 01/15/22 03:52 36.5 C 70 103/66 94 Room Air 01/14/22 22:36 37.0 C 84 18 103/71 96 Room Air
[2022-01-15] MEDS: allopurinoL 300 MG TAB PO SCH (11:41)
[2022-01-15] MEDS: FERROUS SULFATE 325 MG TAB PO SCH (11:41)
--- NOTE | 2022-01-15 14:24 | Hospitalist Progress Note ---
Date of Service January 15, 2022 Assessment & Plan (1) Status post lumbar surgery: (2) Neurogenic claudication due to lumbar spinal stenosis: Plan: 01/14: S/P T11-L3 decompression and fusion by Dr Mallory MELENDEZ number 700 mL -pain management per ortho -wound management per ortho -PT/OT as appropriate -DVT prophylaxis per ortho -incentive spirometry -monitor H&H for acute blood loss anemia; Hgb: 13.7 preop 01/15 Anemia secondary to Blood Loss Hg decreased to 11 monitor daily transfuse for Hg < 8 Crea increased to 2.7 hold diuretics no NSAIDS continue IV fluids encouraged to increase fluid intake (3) Atrial fibrillation: Plan: Chronic atrial fibrillation anticoagulated on Eliquis Current rate controlled Eliquis is on hold per Ortho spine--> resume one hemostasis stable per Ortho Continue carvedilol (4) CAD (coronary artery disease): Plan: Nonobstructive CAD on cath in 2018 Continue carvedilol (5) Diabetes mellitus, type 2: Plan: A1c: 9.3 on 12/2021 Hold home oral meds Basal bolus insulin per protocol. Glycemic pharmacist on board, appreciate management (6) Chronic CHF: Plan: Currently appears on the dry side Hold Lasix and metolazone (7) Asthma: Plan: No acute exacerbation Continue home inhalers Albuterol neb as needed (8) Hypertension: Plan: Continue carvedilol (9) Sleep apnea: Plan: CPAP with 2 L oxygen at bedtime (10) GERD (gastroesophageal reflux disease): Plan: Guy's esophagus Continue PPI (11) Anxiety: Plan: Continue paroxetine (12) Renal insufficiency: Plan: CKD II Preop creatinine 1.4. Baseline~1.3 Monitor renal functions, avoid nephrotoxic agents when possible today 2.7 management per above DVT Prophylaxis SCDs Thank you for this consultation. We will follow the patient with you during their hospital stay. You can reach a member of the [facility]01 via [employer] Admission and Anticipated Discharge Date Admission Date: January 14, 2022 Subjective ff up for s/p lumbar spine surgery etc seen sitting up in bed states he feels great minimal back discomfort ambulated in the hallways with no problems no chest pain, dyspnea, palpitations, dizziness no other symptoms Review of Systems Review of Systems: all noted and negative except for above Physical Exam Physical Exam: General- oriented x 3, not in distress, speaks in sentences with no effort or accessory muscle use Head- atraumatic Eyes- PERRL, EOMI, anicteric ENT- oropharynx clear Neck- supple, no JVD, no adenopathy, no thyromegaly; carotids +2/2, no bruits appreciated Lungs- clear to auscultation bilaterally, no rales/wheezes Heart- normal rate, irregularly irregular rhythm; no murmur, no gallop, no rub appreciated Abdomen- normal bowel sounds, nondistended, soft, nontender, no masses or hepatosplenomegaly Back- RAMBO drain in place with full serosanguinous output Extremities- no pretibial edema, no calf tenderness; peripheral pulses intact Neuro- alert, oriented x 3; CN 2-12 grossly intact; motor 5/5 bilaterally;sensation 100% on all extremities; no other gross focal neurologic deficits Skin- warm & dry Results & Data Results & Data ([facility]) Vital Signs (Past 12 Hours) Vital Signs Temp Pulse Resp BP Pulse Ox O2 Del Method 01/15/22 10:39 36.8 C 82 16 105/73 97 Room Air 01/15/22 07:38 36.8 C 68 16 96/63 L 93 Room Air 01/15/22 03:52 36.5 C 70 103/66 94 Room Air all noted and reviewed including below
[2022-01-15] MEDS: SODIUM CHLORIDE 0.9% 1000ML 1,000 ML IV SCH (16:16)
[2022-01-15] MEDS: TERAZOSIN HCL 5 MG CAP PO SCH (21:23)
[2022-01-15] MEDS: DOCUSATE SODIUM/SENNA 50/8.6MG TAB PO SCH (21:24)
[2022-01-15] MEDS: traZODone HCL 100 MG TAB PO SCH (21:24)
[2022-01-16] MEDS: SODIUM CHLORIDE 0.9% 1000ML 1,000 ML IV SCH (04:05)
[2022-01-16] MEDS: INSULIN ASPART PER UNIT SC SCH ×5 (04:10→20:53)
[2022-01-16] MEDS: ACETAMINOPHEN 500 MG TAB PO PRN ×2 (04:51→20:37)
[2022-01-16] MEDS: POLYETHYLENE (MIRALAX) 17 GM PACK PO SCH ×3 (04:51→16:47)
[2022-01-16 07:08] LABS: Basophils # (auto) 0.01 K/uL (0-0.2); Basophils % (auto) 0.1 %; Eosinophils # (auto) 0.01 K/uL (0-0.50); Eosinophils % (auto) 0.1 %; Hematocrit (blood only) 27.6 % (40.1-51.0); Hemoglobin 9.6 g/dl (14.0-18.0); Immature Granulocytes # (auto) 0.08 K/uL (0.00-0.02); Immature Granulocytes % (auto) 0.7 %; Mean Corpuscular Hgb Conc 34.8 g/dL (32.0-36.0); Mean Corpuscular Volume 94.8 fL (80.0-100.0); Mean Platelet Volume 9.4 fL (9.4-12.4); Monocytes # (auto) 1.02 K/uL (0.24-0.82); Monocytes % (auto) 9.2 %; Neutrophils # (auto) 9.02 K/uL (1.4-6.5); Neutrophils % (auto) 80.9 %; Platelet Count 172 K/uL (130-400); RDW Coefficient of Variation 13.2 % (11.5-14.5); RDW Standard Deviation 45.3 fL (36.4-46.3); Red Blood Count 2.91 M/uL (4.63-6.08); White Blood Count 11.14 K/ul (4.8-10.8)
[2022-01-16 07:33] LABS: BUN Creatinine Ratio 34.1 (10-20); Creatinine Clr Calc Pharmacy 78.9 ml/min; Est GFR (African American) 63.1 ml/min; Est GFR (Non-African American) 54.4 ml/min; Potassium 3.6 mmol/L (3.5-5.1)
--- NOTE | 2022-01-16 07:49 | Orthopedic Progress Note ---
Date of Service January 16, 2022 Assessment & Plan (1) Neurogenic claudication due to lumbar spinal stenosis: Plan: Patient is doing well postop 2. We will continue with mobilization efforts. Continue pain control GI DVT prophylaxis. His drain should slow down over the next 24 hours. Hopefully will be able to get him discharged home tomorrow. Admission and Anticipated Discharge Date Admission Date: January 14, 2022 Subjective Patient is seen bedside in room 385. He is postop day 2 status post lumbar decompression L1 to extension of fusion from T11 connecting to his previous hardware from L2 to the sacrum. He is doing quite well today. He has a little bit of incisional pain but the pain is well controlled medications. He is up and walking his legs are functioning very well. He states that he has not felt this good in years. He denies any other numbness, tingling, or paresthesias. He is using a spirometer and is walking regularly. Physical Exam Physical Exam: On exam he is alert and oriented. His lower extreme motor exam reveals no focal atrophy strength and sensation both intact. His abdomen soft nontender his calves are supple nontender. His RAMBO drain is in place and is put out 75 cc this shift 75 on the previous. His dressing is clean dry and intact.
[2022-01-16] MEDS: LANTUS PER UNIT CHARGE SQ SCH ×2 (08:45→20:53)
[2022-01-16] MEDS: carvediloL 12.5 MG TAB PO SCH ×2 (08:46→20:30)
[2022-01-16] MEDS: ASPIRIN 81 MG ECTAB PO SCH (08:46)
[2022-01-16] MEDS: dexAMETHasone 6 MG in SYRINGE 0 ML IV SCH (08:46)
[2022-01-16] MEDS: PANTOprazole 40 MG TAB PO SCH (08:46)
[2022-01-16] MEDS: PRAMIPEXOLE DIHYDROCHLO 0.5 MG TAB PO SCH ×3 (08:46→20:30)
[2022-01-16] MEDS: PARoxetine HCL 20 MG TAB PO SCH ×2 (08:46→20:30)
[2022-01-16] MEDS: POTASSIUM CHLORIDE CRTAB 20 MEQ TABCR PO SCH ×4 (08:48→20:36)
--- NOTE | 2022-01-16 11:08 | Pharmacy Report ---
Pharmacy Glycemic Short Note 2 - Date of Service January 16, 2022 - Glycemic Short BSG Results (Last 24 hours): 01/15/22 01/15/22 01/15/22 12:02 17:10 20:30 Glucose POC Glucose 247 H 162 H 277 H 01/15/22 01/16/22 01/16/22 23:34 04:04 06:41 Glucose 125 H POC Glucose 217 H 209 H 01/16/22 07:51 Glucose POC Glucose 124 H OUTPATIENT ANTIDIABETIC REGIMEN: * n/a * A1c 9.3% ASSESSMENT: * 61 year old now s/p spinal surgery, POD 2. Type 2 diabetic, no medications listed on med list. Elevated A1c 12/2021 * Patient received total of 136 units of insulin yesterday, of which 50 units were basal insulin. Fasting BSG 125 mg/dL - however he did receive about 15 units of correctional insulin overnight to help with elevated blood sugars * Plan to tighten CR slightly more today as steroids continued. Will titrate up basal dosing so that multiple overnight checks are not needed PLAN FOR INPATIENT GLYCEMIC CONTROL: * Hold outpatient oral diabetes medications * Basal insulin * Lantus 30 Qam * Lantus 20-30 units Qhs * Bolus insulin * NovoLog per scale ACHS or Q6hrs while NPO * Goal Range: Low 110 mg/dL - High 140 mg/dL * Correction Factor: 12 mg/dL/unit * Nutritional / Prandial insulin per carb ratio of 1 unit per 4 grams CHO consumed
[2022-01-16] MEDS: FUROSEMIDE 40 MG TAB PO SCH ×2 (13:03→16:47)
[2022-01-16] MEDS: FERROUS SULFATE 325 MG TAB PO SCH (13:04)
[2022-01-16] MEDS: allopurinoL 300 MG TAB PO SCH (13:04)
--- NOTE | 2022-01-16 18:07 | Hospitalist Progress Note ---
Date of Service January 16, 2022 Assessment & Plan (1) Status post lumbar surgery: (2) Neurogenic claudication due to lumbar spinal stenosis: Plan: 01/16 S/P T11-L3 decompression and fusion by Dr Mallory MELENDEZ number 700 mL Remained stable overall 01/16 Anemia secondary to Blood Loss Hg decreased to 9.6 monitor daily transfuse for Hg < 8 Crea increased to 1.8, now improved to 1.3 Resume diuretics no NSAIDS (3) Atrial fibrillation: Plan: Chronic atrial fibrillation anticoagulated on Eliquis Current rate controlled Eliquis is on hold per Ortho spine--> resume Eliquis hemostasis stable per Ortho Continue carvedilol (4) CAD (coronary artery disease): Plan: Nonobstructive CAD on cath in 2018 Continue carvedilol (5) Diabetes mellitus, type 2: Plan: A1c: 9.3 on 12/2021 Hold home oral meds Basal bolus insulin per protocol. Glycemic pharmacist on board, appreciate management 01/16 Patient currently on NovoLog insulin sliding scale A1c earlier this month 9.3 Patient prefers to be discharged with insulin regimen Will consult wellness educator (6) Chronic CHF: Plan: Resume Lasix and metolazone (7) Asthma: Plan: No acute exacerbation Continue home inhalers Albuterol neb as needed (8) Hypertension: Plan: Continue carvedilol (9) Sleep apnea: Plan: CPAP with 2 L oxygen at bedtime (10) GERD (gastroesophageal reflux disease): Plan: Guy's esophagus Continue PPI (11) Anxiety: Plan: Continue paroxetine (12) Renal insufficiency: Plan: CKD II Preop creatinine 1.4. Baseline~1.3 Monitor renal functions, avoid nephrotoxic agents when possible Today 1.3 management per above DVT Prophylaxis SCDs Thank you for this consultation. We will follow the patient with you during their hospital stay. You can reach a member of [facility] via [employer] Admission and Anticipated Discharge Date Admission Date: January 14, 2022 Subjective Follow-up for status post back surgery, etc. Resting bed, comfortable, in good spirits States he feels fine overall Minimal back pain, ambulating with no problems no chest pain, dyspnea, palpitations, dizziness No other symptoms Review of Systems Review of Systems: all noted and negative except for above Physical Exam Physical Exam: General- oriented x 3, not in distress, speaks in sentences with no effort or accessory muscle use Eyes- anicteric Neck- no JVD Lungs- clear BS BL Heart- normal rate, regular rhythm; no murmurs Abdomen- normal bowel sounds, nondistended, soft, nontender Extremities-mild lower extremity edema, no calf tenderness Neuro- alert, oriented x 3; no gross focal neurologic deficits Skin- warm & dry Results & Data Results & Data ([facility]) Vital Signs (Past 12 Hours) Vital Signs Temp Pulse Resp BP Pulse Ox O2 Del Method 01/16/22 15:18 37.1 C 69 16 112/66 97 Room Air 01/16/22 07:48 36.5 C 61 16 95/65 L 98 Room Air all noted and reviewed including below
[2022-01-16] MEDS: TERAZOSIN HCL 5 MG CAP PO SCH (20:29)
[2022-01-16] MEDS: DOCUSATE SODIUM/SENNA 50/8.6MG TAB PO SCH (20:30)
[2022-01-16] MEDS: traZODone HCL 100 MG TAB PO SCH (20:33)
[2022-01-17] MEDS ORDERED: INSULIN ASPART PER UNIT SC SCH
[2022-01-17] MEDS: POLYETHYLENE (MIRALAX) 17 GM PACK PO SCH ×2 (00:47→05:31)
[2022-01-17] MEDS: ACETAMINOPHEN 500 MG TAB PO PRN (04:50)
[2022-01-17 06:39] LABS: Estimated Average Glucose 217 mg/dl; Hemoglobin A1C 9.2 % (4.5-5.6)
[2022-01-17 07:25] LABS: Basophils # (auto) 0.01 K/uL (0-0.2); Basophils % (auto) 0.1 %; Eosinophils # (auto) 0.01 K/uL (0-0.50); Eosinophils % (auto) 0.1 %; Hematocrit (blood only) 24.7 % (40.1-51.0); Hemoglobin 8.3 g/dl (14.0-18.0); Immature Granulocytes # (auto) 0.09 K/uL (0.00-0.02); Immature Granulocytes % (auto) 0.9 %; Lymphocytes # (auto) 1.03 K/uL (1.2-3.4); Lymphocytes % (auto) 10.9 %; Mean Corpuscular Hemoglobin 32.5 pg (25.0-34.0); Mean Corpuscular Hgb Conc 33.6 g/dL (32.0-36.0); Mean Corpuscular Volume 96.9 fL (80.0-100.0); Mean Platelet Volume 10.1 fL (9.4-12.4); Monocytes # (auto) 0.74 K/uL (0.24-0.82); Monocytes % (auto) 7.8 %; Neutrophils # (auto) 7.61 K/uL (1.4-6.5); Neutrophils % (auto) 80.2 %; Platelet Count 166 K/uL (130-400); RDW Coefficient of Variation 13.6 % (11.5-14.5); RDW Standard Deviation 48.1 fL (36.4-46.3); Red Blood Count 2.55 M/uL (4.63-6.08); White Blood Count 9.49 K/ul (4.8-10.8)
[2022-01-17 08:06] LABS: BUN Creatinine Ratio 35.8 (10-20); Calcium 8.6 mg/dl (8.5-10.1); Creatinine Clr Calc Pharmacy 88.6 ml/min; Est GFR (African American) 72.5 ml/min; Est GFR (Non-African American) 62.5 ml/min; Potassium 3.9 mmol/L (3.5-5.1)
--- NOTE | 2022-01-17 08:33 | Discharge Summary ---
Date of Service January 17, 2022 Admission HPI Per Admitting Provider This is a 61-year-old male who presents with worsening back and leg symptoms after failing course of nonoperative care is here for surgical invention. Admission Exam (Per Admitting) Constitutional WD/WN, vitals as above Eyes normal visual davis by confrontation ENMT external ear and nose normal, oropharynx normal Neck trachea midline Respiratory normal respiratory effort Cardiovascular Extremities: normal capillary refill Gastrointestinal (Abdomen) Inspection/Auscultation: abdomen normal to inspection Musculoskeletal Extremities: + abnormal strength and + muscle atrophy Skin no rashes, warm and dry Neurologic normal touch/pain/proprioception, moves all extremities and + focal motor deficit Psychiatric A+Ox3, euthymic affect Eye Contact: good eye contact Discharge Data Consultations 01/14/22 16:40 Consult Hospitalist Routine Procedures Performed Operation Date: 01/14/22 10:55 Actual Procedures p T11-L2 Decompression and Fusion, Interbody [id number], Spinal Cord Monitoring(Not Applicable) - Jacobo Tejada DO Hospital Course (1) Status post lumbar surgery: Patient is being discharged home on postoperative day 3 status post thoracic decompression instrumented fusion. He is done great. He is an uneventful uneventful hospital course. Lab values have been stable. He is making great progress in physical therapy. Pain significantly improved. States is the best he is felt in years. RAMBO drain output is diminishing appropriately. He has had a bowel movement. Discharge Instructions ACTIVITY RECOMMENDATIONS: SELF CARE INSTRUCTIONS AFTER THORACIC/LUMBAR FUSIONS 1. You may walk to your tolerance. It is good exercise for your legs and back. Expect some back and intermittent leg aches and pains. 2. You may perform "counter-top" level activities (make a sandwich, flory with a project, etc.). 3. No bending or lifting of more than 10 pounds or back twisting of any nature (roll like a log when turning in bed). 4. You may ride in a car for 20-30 minutes at a time. No driving until after your first visit with your doctor. 5. Frequent changes of position and restricting sitting to 30 minutes at a time will help limit the amount of back spasms and stiffness you may experience. 6. You may discontinue the use of ambulatory aids (cane, crutches, etc.) once your strength and confidence allow. 7. You may strip machine tender the shower and let water strike your incision when you arrive home at least once daily. Do not take a tub bath, sit in a hot tub or go into a swimming pool until after your first recheck in the office. SPECIAL CARE INSTRUCTIONS: VERY IMPORTANT TO READ AND REVIEW A. Your surgical incision has been closed with a cosmetic suture under the skin that will dissolve in about 6 weeks. In 14 days, you can use a pair of clean scissors and cut the suture that is left outside of the skin at the ends of your incision. 1. The small skin tapes can be removed 7 days after surgery if they have not fallen off by that point. 2. You may keep the wound open to air as much as possible to promote healing after post-op day number 5 unless told otherwise by your doctor. 3. If you think the wound looks like it is becoming infected (redness or worsening drainage) and/or you are experiencing fever, chill or worsening back pain and muscle spasms, contact the office so that we may evaluate you as soon as possible. B. Complications are uncommon, but please contact us if you have any signs or symptoms of: 1. wound infection (fever higher than 102.5 degrees F, redness, separation of wound, drainage, or increasing pain from the incision) 2. blood clots in legs (pain, swelling, redness and warmth in legs) 3. urinary tract infection (fever higher than 102.5 degrees F, burning upon urination or increased frequency of urination) 4. nerve problems (inability to walk on your toes or heels, numbness, loss of bowel or bladder control) 5. any other symptoms that concern you C. Please call the office at if you have any concerns or questions about your operation or recovery. D. No smoking! Smoking drastically decreases the chance of a solid fusion. E. Do not take any anti-inflammatory medications (Indocin, Advil, Motrin, Aspirin, Naprosyn, etc.) as these may inhibit the chance of a solid fusion. Tylenol is okay to take for pain. MANAGING PAIN AFTER SPINAL SURGERY 1. Narcotic medication is intended for short-term use and will be provided for surgical pain. Surgical pain usually lasts for a period of 4-6 weeks. Narcotic medication includes Percocet, Vicodin, Darvocet, Tylenol #3 or Lortab. 2. Longer-term pain is more appropriately treated with non-narcotic medication such as Tylenol ES. 3. Muscle spasm is not appropriately treated with narcotics. Muscle relaxers such as Soma, Flexeril or Skelaxin can be used along with Tylenol ES. 4. Remember that we all live with some "aches and pains". This is not unusual or uncommon after an injury or as we get older. a. Back pain is expected and may include muscle spasms for 4 to 6 weeks after surgery. The pain should gradually improve. If the pain worsens for no apparent reason, please contact the office. b. Intermittent leg pain may also be experienced and should not be concerned about unless it worsens for no apparent reason. If so, please contact the office. 5. We will provide appropriate medication within the normal guidelines of their prescribed use. We will also be very cautious and aware of potential abuse and extended duration of patients' medication needs. a. Pain medications are for your comfort and to assist with sleep and rest so that the tissue can heal. They are not provided in order to return to normal activity and should not be used through the day. To do so or worsening pain at night can result from ongoing tissue damage and development of tolerance to the prescribed medicine. 6. Please allow 2-3 days to process refills. Prescriptions will not be mailed but must be picked up at the office. FOLLOW UP VISIT: Keep your scheduled follow-up appointment. Any questions, please call the office at .
[2022-01-17] MEDS: INSULIN ASPART PER UNIT SC SCH ×2 (09:00→12:42)
[2022-01-17] MEDS: ASPIRIN 81 MG ECTAB PO SCH (09:00)
[2022-01-17] MEDS: POTASSIUM CHLORIDE CRTAB 20 MEQ TABCR PO SCH (09:00)
[2022-01-17] MEDS: LANTUS PER UNIT CHARGE SQ SCH (09:01)
[2022-01-17] MEDS: carvediloL 12.5 MG TAB PO SCH (09:05)
[2022-01-17] MEDS: dexAMETHasone 6 MG in SYRINGE 0 ML IV SCH (09:06)
[2022-01-17] MEDS: PARoxetine HCL 20 MG TAB PO SCH (09:07)
[2022-01-17] MEDS: PANTOprazole 40 MG TAB PO SCH (09:07)
[2022-01-17] MEDS: PRAMIPEXOLE DIHYDROCHLO 0.5 MG TAB PO SCH (09:07)
[2022-01-17] MEDS: FUROSEMIDE 40 MG TAB PO SCH (10:46)
[2022-01-17] MEDS: FERROUS SULFATE 325 MG TAB PO SCH (10:47)
[2022-01-17] MEDS: allopurinoL 300 MG TAB PO SCH (10:47)
--- NOTE | 2022-01-17 19:29 | Hospitalist Progress Note ---
Date of Service January 17, 2022 Assessment & Plan (1) Status post lumbar surgery: (2) Neurogenic claudication due to lumbar spinal stenosis: Plan: 01/16 S/P T11-L3 decompression and fusion by Dr Mallory MELENDEZ number 700 mL Remained stable overall 01/16 Anemia secondary to Blood Loss Hg decreased to 9.6 monitor daily transfuse for Hg < 8 Crea increased to 1.8, now improved to 1.3 Resume diuretics no NSAIDS Acute blood loss anemia (3) Atrial fibrillation: Plan: Chronic atrial fibrillation anticoagulated on Eliquis Current rate controlled Eliquis is on hold per Ortho spine--> resume Eliquis hemostasis stable per Ortho Continue carvedilol (4) CAD (coronary artery disease): Plan: Nonobstructive CAD on cath in 2018 Continue carvedilol (5) Diabetes mellitus, type 2: Plan: A1c: 9.3 on 12/2021 Hold home oral meds Basal bolus insulin per protocol. Glycemic pharmacist on board, appreciate management 01/16 Patient currently on NovoLog insulin sliding scale A1c earlier this month 9.3 Patient prefers to be discharged with insulin regimen Will consult early childhood special educator (6) Chronic CHF: Plan: Resume Lasix and metolazone Chronic diastolic CHF (7) Asthma: Plan: No acute exacerbation Continue home inhalers Albuterol neb as needed (8) Hypertension: Plan: Continue carvedilol (9) Sleep apnea: Plan: CPAP with 2 L oxygen at bedtime (10) GERD (gastroesophageal reflux disease): Plan: Guy's esophagus Continue PPI (11) Anxiety: Plan: Continue paroxetine (12) Renal insufficiency: Plan: Acute Renal Failure, CKD II Preop creatinine 1.4. Baseline~1.3 Monitor renal functions, avoid nephrotoxic agents when possible Today 1.3 management per above DVT Prophylaxis SCDs Thank you for this consultation. We will follow the patient with you during their hospital stay. You can reach a member of the [facility] Hospitalist Team 16/01 via [employer] Admission and Anticipated Discharge Date Admission Date: January 14, 2022 Results & Data Results & Data ([facility]) Vital Signs (Past 12 Hours) Vital Signs Temp Pulse Pulse Resp BP Pulse Ox O2 Del Method 01/17/22 12:50 36.4 C L 74 57 L 18 98/61 L 97 01/17/22 07:47 36.4 C L 57 L 18 98/61 L 97 Room Air
== END 2022-01-17 13:27 | disposition home or self-care (01) | DRG 454 ==
LOC: ASU 09:21 → 3N 15:15
DX: E11.22 Type 2 diabetes mellitus with diabetic chronic kidney disease; Z85.810 Personal history of malignant neoplasm of tongue; Z79.01 Long term (current) use of anticoagulants; Z98.84 Bariatric surgery status; Z68.41 Body mass index [BMI] 40.0-44.9, adult; I25.2 Old myocardial infarction; N18.2 Chronic kidney disease, stage 2 (mild); E66.9 Obesity, unspecified; Z98.1 Arthrodesis status; M48.062 Spinal stenosis, lumbar region with neurogenic claudication; Z79.82 Long term (current) use of aspirin; Z91.030 Bee allergy status; E78.5 Hyperlipidemia, unspecified; K21.9 Gastro-esophageal reflux disease without esophagitis; Z87.442 Personal history of urinary calculi; I25.10 Atherosclerotic heart disease of native coronary artery without angina pectoris; I48.20 Chronic atrial fibrillation, unspecified; Z91.018 Allergy to other foods; M06.9 Rheumatoid arthritis, unspecified; Z96.653 Presence of artificial knee joint, bilateral; Z79.4 Long term (current) use of insulin; G47.30 Sleep apnea, unspecified; N17.9 Acute kidney failure, unspecified; I50.32 Chronic diastolic (congestive) heart failure; E11.42 Type 2 diabetes mellitus with diabetic polyneuropathy; J45.909 Unspecified asthma, uncomplicated; Z87.11 Personal history of peptic ulcer disease; Z90.09 Acquired absence of other part of head and neck; Z86.16 Personal history of COVID-19; I13.0 Hypertensive heart and chronic kidney disease with heart failure and stage 1 through stage 4 chronic kidney disease, or unspecified chronic kidney disease; Z88.8 Allergy status to other drugs, medicaments and biological substances; D62 Acute posthemorrhagic anemia